=== PATIENT | male | born 1960 | race Caucasian/White ===

== ENCOUNTER → 2023-07-18 15:11 | Outpatient (REF) | payer BC, SELFPAY ==
[2023-07-18 17:02] LABS: PSA, Total - Diagnostic 1.26 ng/ml (0.0-4.0)
== END ==
LOC: REG 15:11
PROVIDERS: ATTENDING PHYSICIAN Specialist; FAMILY PHYSICIAN Family Medicine
DX: Z12.5 Encounter for screening for malignant neoplasm of prostate (principal)
CPT/HCPCS: 36415; 84153

== ENCOUNTER → 2023-09-30 12:16 | Outpatient (REF) | payer BC, SELFPAY ==
[2023-09-30 13:36] LABS: % Basophils 0.5 % (0-2); % Immature Granulocytes 0.2 % (0-0.5); % Lymphocytes 30.7 % (20.5-51.1); % Monocytes 8.2 % (1.7-9.3); % Neutrophils 59.4 % (42.2-75.2); Absolute Eosinophils 0.1 10^3/uL (0-0.7); Absolute Lymphocytes 1.9 10^3/uL (1.2-3.4); Absolute Monocytes 0.5 10^3/uL (0.1-0.6); Absolute Neutrophils 3.6 10^3/uL (1.4-6.5); Hematocrit 47.5 % (39.0-52.0); Hemoglobin 16.8 g/dL (13.0-18.0); Mean Corp Hgb Conc. 35.4 g/dL (33.0-37.0); Mean Corpuscular Hgb 31.2 pg (27.0-31.0); Mean Corpuscular Volume 88.3 fL (80.0-94.0); Mean Platelet Volume 11.7 fL (7.4-10.4); Nucleated Red Blood Cells % 0 % (-); Platelet Count 197 10^3/uL (130-400); Red Blood Cell Count 5.38 10^6/uL (4.70-6.10); White Blood Cell Count 6.1 10^3/uL (4.8-10.8)
[2023-09-30 14:26] LABS: ALT (SGPT) 22 U/L (0-50); AST (SGOT) 23 U/L (17-59); Albumin 4.3 g/dl (3.5-5.0); Alkaline Phosphatase 88 U/L (38-126); Blood Urea Nitrogen 17 mg/dl (9-20); Calcium 9.7 mg/dl (8.4-10.2); Carbon Dioxide 28 mmol/L (22-30); Chloride 99 mmol/L (98-107); Glucose 243 mg/dl (70-99); HDL Cholesterol 48 mg/dl; LDL Cholesterol, Calculated 169 mg/dl; Potassium 4.4 mmol/L (3.5-5.1); Sodium 133 mmol/L (135-145); Total Bilirubin 1.4 mg/dl (0.2-1.3); Total Cholesterol 236 mg/dl (50-199); Total Protein 6.8 g/dl (6.3-8.2); Triglyceride 96 mg/dl (10-149); Very Low Density Lipoprotein 19 mg/dl (0-30); eGFR > 60.00
[2023-09-30 14:56] LABS: Glycohemoglobin (HgbA1c) 13.4 % (4.0-5.6)
== END ==
LOC: REG 12:16
PROVIDERS: ATTENDING PHYSICIAN Internal Medicine Cardiovascular Disease; FAMILY PHYSICIAN Family Medicine
DX: Z00.00 Encounter for general adult medical examination without abnormal findings (principal); R73.01 Impaired fasting glucose; Z01.89 Encounter for other specified special examinations; E78.5 Hyperlipidemia, unspecified; R73.03 Prediabetes
CPT/HCPCS: 36415; 80053; 80061; 83036; 85025

== ENCOUNTER → 2023-09-30 13:34 | Outpatient (REF) | payer SELFPAY | LOC: RAD 13:34 | PROVIDERS: ATTENDING PHYSICIAN Internal Medicine Cardiovascular Disease; FAMILY PHYSICIAN Family Medicine | DX: I10 Essential (primary) hypertension (principal) | CPT/HCPCS: 75571 ==

== ENCOUNTER → 2023-11-08 10:08 | Outpatient (REF) | payer BC, SELFPAY | LOC: PET 10:08 | PROVIDERS: ATTENDING PHYSICIAN Internal Medicine Cardiovascular Disease | DX: R06.09 Other forms of dyspnea (principal); I25.10 Atherosclerotic heart disease of native coronary artery without angina pectoris; E11.59 Type 2 diabetes mellitus with other circulatory complications | CPT/HCPCS: 78431; A9555; J2785 ==

== ENCOUNTER 2023-11-22 07:16 | Day surgery (SDC) | payer BC, SELFPAY ==
[2023-11-21 18:18] VITALS: BMI 32.7
[2023-11-22] VITALS (21 sets, daily range): BP systolic 124–146; BP diastolic 72–87
[2023-11-22 07:58] LABS: APTT 25.6 Sec (23.4-35.0); INR 1.16; PT 14.6 Sec (11.4-14.6)
[2023-11-22 08:14] LABS: Glucose - Point of Care 137 mg/dl (70-99)
[2023-11-22 08:22] LABS: Hematocrit 45.3 % (39.0-52.0); Hemoglobin 15.9 g/dL (13.0-18.0); Mean Corp Hgb Conc. 35.1 g/dL (33.0-37.0); Mean Corpuscular Hgb 31.3 pg (27.0-31.0); Mean Corpuscular Volume 89.2 fL (80.0-94.0); Mean Platelet Volume 11.3 fL (7.4-10.4); Platelet Count 199 10^3/uL (130-400); Red Blood Cell Count 5.08 10^6/uL (4.70-6.10); Red Cell Dist. Width 12.1 % (11.5-14.5); White Blood Cell Count 5.9 10^3/uL (4.8-10.8)
[2023-11-22] MEDS: LOW STRENGTH ASPIRIN 81 MG PO (08:23)
[2023-11-22] MEDS: NSS 310 ML IV (08:28)
[2023-11-22 08:38] LABS: ALT (SGPT) 24 U/L (0-50); AST (SGOT) 29 U/L (17-59); Albumin 4.4 g/dl (3.5-5.0); Alkaline Phosphatase 75 U/L (38-126); Blood Urea Nitrogen 17 mg/dl (9-20); Calcium 9.7 mg/dl (8.4-10.2); Carbon Dioxide 26 mmol/L (22-30); Chloride 104 mmol/L (98-107); Estimated Creatinine Clearance > 125 ml/min; Glucose 131 mg/dl (70-99); Potassium 4.2 mmol/L (3.5-5.1); Sodium 139 mmol/L (135-145); Total Protein 6.7 g/dl (6.3-8.2); eGFR > 60.00
[2023-11-22 09:19] LABS: ACT-LR - POC 197 Seconds (116-155)
[2023-11-22 09:30] LABS: ACT-LR - POC 223 Seconds (116-155)
--- NOTE | 2023-11-22 12:29 | ITS.CL.CATH ---
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
Cardiac Catheterization
Procedure Report:
LEFT HEART CATHETERIZATION
Date of Procedure: November 22, 2023
Referring: Dr. Holly Mcintosh
PROCEDURES:
1. Left heart catheterization with coronary and single-plane left ventriculography
2. Hemodynamic assessment of LAD and circumflex with a [place] Omni wire. The iFR in the circumflex measured above the ischemic threshold while the iFR in the LAD measured well below the ischemic threshold serially measuring 0.78, 0.77, 0.76
INDICATION: This is a 63-year-old diabetic gentleman with a past medical history notable for diabetes with a recent hemoglobin A1c measuring 13.4%, familial hyperlipidemia untreated for many years and hypertension. A recent CT scan for coronary
calcium score was found to be quite elevated at 2711. A subsequent PET CT scan was notable for decreased myocardial flow reserve in the RCA, LAD, and circumflex. Although not highly symptomatic, the combination of these risk factors and findings
from the PET scan led to the decision to proceed with coronary angiography as there is concern from family and regular physicians that he may be minimizing symptoms
ACCESS: Right radial artery, 6 [place] sheath
HEMODYNAMICS : (mmHg)
AO (s/d) : 138/63
LV (s/d) : 129/8
LVEDP : 23
CORONARY FINDINGS
DOMINANCE: Right
LEFT MAIN: 30% mid narrowing with no pressure dampening upon engagement of a 6 [place] diagnostic catheter
LEFT ANTERIOR DESCENDIN% ostial stenosis with significant step up noted at the ostium of the LAD during IFR pullback. There is a 50% stenosis in the mid LAD beyond the first diagonal branch and 30% stenosis in the LAD beyond the second
diagonal branch. The distal LAD wraps completely around the apex supplying a significant portion of the inferior wall. The iFR in the LAD measured well below the ischemic threshold at 0.78, 0.77, and 0.76
CIRCUMFLEX: The circumflex is a large caliber nondominant vessel. OM1 arises proximally from the circumflex and is a small caliber vessel. OM 2 is a moderate to large size vessel with a 50% proximal stenosis. OM 3 is also a moderate caliber
vessel with a 40% mid stenosis. The circumflex continues in the AV groove supplying a sizable posterolateral branch. The iFR in the circumflex measured above the ischemic threshold at 1.0 and 1.0.
RIGHT CORONARY ARTERY: Heavily calcified and occluded in the mid vessel with a distal RCA filling via atzy-md-dwwul collaterals
VENTRICULOGRAPHY: Left ventriculography was performed in an WELLER projection. The digital single-plane left ventricular ejection fraction is estimated at 60%. No regional wall motion abnormalities are noted
HEMODYNAMIC ASSESSMENT OF THE CIRCUMFLEX AND LAD WITH A [place] OMNI WIRE: Intravenous heparin was administered and the ACT was followed during the procedure. A 6 [place] JL 4 guide catheter was advanced to the proximal descending thoracic aorta. A
[place] Omni wire was advanced to the guide catheter tip and normalized to guide catheter pressure while the guide catheter was disengaged from the left main. The 6 [place] JL 4 catheter then cannulated the left main and the Omni wire was advanced
to the distal circumflex where the iFR serially measured above the ischemic threshold at 1.0, and 1.0. The Omni wire was withdrawn from the circumflex and readvanced into the apical LAD where the iFR serially measured below the ischemic threshold
at 0.78, 0.77, and 0.76. A pullback was performed with a minor step up noted across the stenosis near the second diagonal branch and a significant step up was noted to near baseline levels at the ostium of the LAD. The Pd/Pa at the guide catheter
in the ascending aorta measured 0.98 confirming no significant baseline draft.
RADIATION SUMMARY: Fluoro Time (min): 7.8, Dose (mGy): 596, DAP (Gy.cm2) : 46.3
Closure Device: TR band
CONCLUSIONS:
1. Two-vessel coronary artery disease with chronic total occlusion of the RCA and high-grade hemodynamically significant stenosis at the ostium of the LAD. Moderate coronary disease in OM2 and OM3
2. Preserved left ventricular systolic function
RECOMMENDATIONS
1. Discussed with Dr. Mcintosh and will refer for CT surgical evaluation
Copy to: Dr. Holly Mcintosh
[2023-11-23 16:19] LABS: Fructosamine 353 umol/L (205-285)
== END 2023-11-22 15:00 | disposition home or self-care (01) ==
LOC: CATH 07:16
PROVIDERS: ATTENDING PHYSICIAN Internal Medicine Interventional Cardiology; CONSULT PHYSICIAN Thoracic Surgery (Cardiothoracic Vascular Surgery); FAMILY PHYSICIAN Family Medicine
DX: I25.10 Atherosclerotic heart disease of native coronary artery without angina pectoris (principal); I10 Essential (primary) hypertension; E78.49 Other hyperlipidemia; E11.9 Type 2 diabetes mellitus without complications
CPT/HCPCS: 80053; 82962; 82985; 85027; 85347; 85610; 85730; 93005; 93306; 93458; 93571; 93572; C1769; C1894; Q9967

== ENCOUNTER 2023-12-06 04:54 | Inpatient (IN) | payer BC, SELFPAY ==
[2023-12-02 12:05] VITALS: BMI 32.7
[2023-12-02 12:50] LABS: % Basophils 0.3 % (0-2); % Immature Granulocytes 0.2 % (0-0.5); % Lymphocytes 26.1 % (20.5-51.1); % Neutrophils 64.4 % (42.2-75.2); Absolute Eosinophils 0.1 10^3/uL (0-0.7); Absolute Lymphocytes 1.6 10^3/uL (1.2-3.4); Absolute Monocytes 0.4 10^3/uL (0.1-0.6); Absolute Neutrophils 3.9 10^3/uL (1.4-6.5); Hematocrit 45.9 % (39.0-52.0); Hemoglobin 15.8 g/dL (13.0-18.0); Mean Corp Hgb Conc. 34.4 g/dL (33.0-37.0); Mean Corpuscular Hgb 31.5 pg (27.0-31.0); Mean Corpuscular Volume 91.6 fL (80.0-94.0); Mean Platelet Volume 11.6 fL (7.4-10.4); Nucleated Red Blood Cells % 0 % (-); Platelet Count 198 10^3/uL (130-400); Red Blood Cell Count 5.01 10^6/uL (4.70-6.10); Red Cell Dist. Width 12.3 % (11.5-14.5)
[2023-12-02 12:59] LABS: Urine Albumin Negative (Neg - Trace); Urine Bilirubin Negative (Negative); Urine Character Clear (Clear); Urine Color Yellow; Urine Glucose Negative (Negative); Urine Ketone Negative (Negative); Urine Leukocyte Negative (Negative); Urine Nitrite Negative (Negative); Urine Occult Blood Negative (Negative); Urine Urobilinogen Negative (Neg - 1+)
[2023-12-02 13:03] LABS: ALT (SGPT) 21 U/L (0-50); AST (SGOT) 23 U/L (17-59); Albumin 4.4 g/dl (3.5-5.0); Alkaline Phosphatase 67 U/L (38-126); Blood Urea Nitrogen 16 mg/dl (9-20); Calcium 9.7 mg/dl (8.4-10.2); Carbon Dioxide 25 mmol/L (22-30); Chloride 101 mmol/L (98-107); Direct Bilirubin 0.2 mg/dl (0.0-0.4); Estimated Creatinine Clearance 123 ml/min; Glucose 121 mg/dl (70-99); Sodium 136 mmol/L (135-145); Total Bilirubin 1.1 mg/dl (0.2-1.3); Total Protein 6.6 g/dl (6.3-8.2); eGFR > 60.00
[2023-12-02 13:06] LABS: INR 1.12; PT 14.3 Sec (11.4-14.6)
[2023-12-02 13:07] LABS: APTT 29.7 Sec (23.4-35.0)
--- NOTE | 2023-12-02 13:57 | CM ---
"Chart reviewed. Met with the patient in PAT. Reviewed preoperative and postoperative instruction and restrictions, along with showering guidelines. Gave patient 2 soaps. 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 Patient is agreeable to a home visit by CT Transitional Care RN. Plan is for the patient to return home with CT Transitional RN. "
[2023-12-03 09:26] LABS: Glycohemoglobin (HgbA1c) 8.4 % (4.0-5.6)
[2023-12-06] VITALS (57 sets, daily range): BP systolic 77–150; BP diastolic 47–85; BMI 31.5
--- NOTE | 2023-12-06 00:53 | W.PN.CT ---
Assessment / Plan
-
Assessment:
S/P Standard sternotomy with aortic and right atrial cannulation/Coronary artery bypass grafting x 4 (In situ HUMPHREY to LAD, Ao to RSVG to OM 2 to OM 3, Ao to RSVG to distal RCA)/R EVH/Left atrial appendage ligation, 35 mm clip, by Dr. Muniz on 12/06/23,
pod#1
-Severe 2v CAD involving the LAD and RCA
-LVEF 60% per intraop ALONDRA
-HTN
-Hyperlipidemia
-T2DM (A1C 8.4)
-Class 1 obesity (BMI 33)
-Exercise induced asthma
-COVIDx2
-Renal calculi
-Diverticulosis
-S/p colonoscopy with polypectomies, 10/2022
-S/P repair of torn right meniscus, 2018
-S/P repair of Left rotator cuff, 2017
-S/p repair of tip of left middle finger
-Acute postop blood loss/Anemia (stable without blood transfusion)
-Acute postop atelectasis
-Acute postop hypovolemia with subsequent hypervolemia
Plan:
-No major issues overnight. Hemodynamically and neurologically intact
-Successfully extubated on 12/06/23 @ 1508
-Weaned off of Levophed gtt overnight, remains on insulin gtt per protocol
-No swan, U/O mL since OR
-Will hold AM dose of Lopressor given soft BP overnight
-Cont. current meds (ASA, Lipitor, Amiodarone; will add Plavix)
-Monitor chest tube output: 2meds , L pleurals
-D/C'd SLIC and a-line @ 0500
-D/C'd alvarez @ 0600
-Telemetry phase tomorrow once off insulin gtt per protocol. Will consult Diabetes education/management, A1C 8.4
-Maintain cordis
-Maintain temporary PW (will likely pull in 1-2 days)
-Wean off of O2 as tolerated
-Encourage use of IS
-OOB into chair/Ambulate
Subjective
-
Date of Service: December 06, 2023
Objective Data
-
Lab Results
12/02/23 12:17
12/02/23 12:17
PT 14.3 Sec (11.4-14.6) 12/02/23 12:17
INR 1.12 12/02/23 12:17
APTT 29.7 Sec (23.4-35.0) 12/02/23 12:17
[2023-12-06] MEDS: MAGNESIUM OXIDE 500 MG PO (05:42)
[2023-12-06] MEDS: PROTONIX 40 MG PO (05:42)
[2023-12-06] MEDS: LOPRESSOR 25 MG PO (05:43)
[2023-12-06] MEDS: BACTROBAN 2% OINTMENT 1 APPLIC NASAL ×2 (05:43→19:52)
--- NOTE | 2023-12-06 06:26 | W.CVOR.SURPR ---
CVOR Surgeon Immed Pre Op
-
I have examined this patient prior to performance of the scheduled procedure.
The patient's condition is unchanged from the time of the dictated/written History and
Physical and the patient is able to undergo the scheduled procedure.
CABG + CHRISTIANO E
CHADsVASc 3+
[2023-12-06 07:31] LABS: ACT+ - POC 87 Seconds (82-134)
[2023-12-06 07:35] LABS: Urine Albumin Negative (Neg - Trace); Urine Bilirubin Negative (Negative); Urine Character Clear (Clear); Urine Color Yellow; Urine Glucose Negative (Negative); Urine Ketone Negative (Negative); Urine Leukocyte Negative (Negative); Urine Nitrite Negative (Negative); Urine Occult Blood Negative (Negative); Urine Specific Gravity 1.025 (<1.030); Urine Urobilinogen Negative (Neg - 1+)
[2023-12-06 07:35] LABS: B.E. - POC -0.4 mmol/L; Glucose - POC 153 mg/dl (65-99); HCO3 - POC 25 mmol/L (21-29); Hematocrit - POC 41 % PCV (42-52); Hemodilution- POC No; Ionized Calcium - POC 1.29 mmol/L (1.12-1.27); PCO2 - POC 41 mmHg (35-45); PO2 - POC 523 mmHg (80-100); POC Comment PRE; Potassium - POC 3.9 mmol/L (3.6-5.0); Sodium - POC 141 mmol/L (135-145); pH - POC 7.39 (7.35-7.45)
--- NOTE | 2023-12-06 08:56 | CM ---
pt in OR today, cm to follow.
[2023-12-06 09:14] LABS: ACT+ - POC 642 Seconds (82-134)
[2023-12-06 09:46] LABS: ACT+ - POC 700 Seconds (82-134)
[2023-12-06 09:47] LABS: B.E. - POC 1.7 mmol/L; Glucose - POC 189 mg/dl (65-99); HCO3 - POC 28 mmol/L (21-29); Hematocrit - POC 35 % PCV (42-52); Hemodilution- POC Yes; Hemoglobin Calculated - POC 11.9; Ionized Calcium - POC 1.14 mmol/L (1.12-1.27); O2 Saturation %Calculated-POC 99.8 5 (92-96); PCO2 - POC 51 mmHg (35-45); PO2 - POC 226 mmHg (80-100); POC Comment CPB; Potassium - POC 4.4 mmol/L (3.6-5.0); Sodium - POC 138 mmol/L (135-145); pH - POC 7.35 (7.35-7.45)
[2023-12-06 10:10] LABS: B.E. - POC 0.9 mmol/L; Glucose - POC 198 mg/dl (65-99); HCO3 - POC 25 mmol/L (21-29); Hematocrit - POC 38 % PCV (42-52); Hemodilution- POC Yes; Hemoglobin Calculated - POC 12.8; Ionized Calcium - POC 1.14 mmol/L (1.12-1.27); O2 Saturation %Calculated-POC 99.8 5 (92-96); PCO2 - POC 38 mmHg (35-45); PO2 - POC 204 mmHg (80-100); POC Comment CPB; Potassium - POC 4.1 mmol/L (3.6-5.0); Sodium - POC 140 mmol/L (135-145); pH - POC 7.43 (7.35-7.45)
[2023-12-06 10:16] LABS: ACT+ - POC 523 Seconds (82-134)
[2023-12-06 10:35] LABS: B.E. - POC 0.2 mmol/L; Glucose - POC 127 mg/dl (65-99); HCO3 - POC 25 mmol/L (21-29); Hematocrit - POC 45 % PCV (42-52); Hemodilution- POC Yes; Hemoglobin Calculated - POC 15.2; Ionized Calcium - POC 1.19 mmol/L (1.12-1.27); O2 Saturation %Calculated-POC 96.8 5 (92-96); PCO2 - POC 38 mmHg (35-45); PO2 - POC 87 mmHg (80-100); POC Comment REWARM; Potassium - POC 4.1 mmol/L (3.6-5.0); Sodium - POC 142 mmol/L (135-145); pH - POC 7.42 (7.35-7.45)
[2023-12-06 10:37] LABS: ACT+ - POC 496 Seconds (82-134)
[2023-12-06 10:41] LABS: B.E. - POC -0.5 mmol/L; Glucose - POC 111 mg/dl (65-99); HCO3 - POC 25 mmol/L (21-29); Hematocrit - POC 42 % PCV (42-52); Hemodilution- POC Yes; Hemoglobin Calculated - POC 14.3; Ionized Calcium - POC 1.17 mmol/L (1.12-1.27); O2 Saturation %Calculated-POC 98.3 5 (92-96); PCO2 - POC 41 mmHg (35-45); PO2 - POC 112 mmHg (80-100); POC Comment WARM; Potassium - POC 4.5 mmol/L (3.6-5.0); Sodium - POC 141 mmol/L (135-145); pH - POC 7.39 (7.35-7.45)
--- NOTE | 2023-12-06 11:03 | PN.DE.MGMTRT ---
Insulin Management
- -
12/06/2023 Diabetes Management Consult
Patient admitted today for OR for CABG. PMH HTN< HLD, nephrolithiasis, ASCVD, type 2 diabetes. Patient is in OR at time of my visit. Information from chart review and patients nurse.
Prior to admission patient taking metformin ER 1000 mg Q PM. A1C on admission 8.4% down from 13.4% 09/30/23. Per Dr. Muniz note patient taking metformin and following carb controlled diet.
Patient will be on glycemic protocol, evaluate daily, prepare for transition to PO regimen POD 2.
Request CM investigate cost of Farxiga or Jardiance to be added to metformin.
Will follow.
Diabetes History
- -
Type of Diabetes: 2
Pre-Admission Diabetes Regimen
Lab Results
Hemoglobin A1c 8.4 % (4.0-5.6) H 12/02/23 12:17
Insulin Pump Settings
IP Diabetes Regimen
Patient Education
[2023-12-06 11:05] LABS: ACT+ - POC 104 Seconds (82-134)
[2023-12-06 11:09] LABS: B.E. - POC -1.8 mmol/L; Glucose - POC 57 mg/dl (65-99); HCO3 - POC 23 mmol/L (21-29); Hematocrit - POC 39 % PCV (42-52); Hemodilution- POC Yes; Hemoglobin Calculated - POC 13.2; Ionized Calcium - POC 1.34 mmol/L (1.12-1.27); PCO2 - POC 39 mmHg (35-45); PO2 - POC 431 mmHg (80-100); POC Comment POST; Potassium - POC 3.9 mmol/L (3.6-5.0); Sodium - POC 142 mmol/L (135-145); pH - POC 7.38 (7.35-7.45)
[2023-12-06 11:35] LABS: B.E. - POC -1.7 mmol/L; Glucose - POC 108 mg/dl (65-99); HCO3 - POC 24 mmol/L (21-29); Hematocrit - POC 41 % PCV (42-52); Hemodilution- POC Yes; Hemoglobin Calculated - POC 13.8; Ionized Calcium - POC 1.33 mmol/L (1.12-1.27); O2 Saturation %Calculated-POC 99.9 5 (92-96); PCO2 - POC 40 mmHg (35-45); PO2 - POC 319 mmHg (80-100); POC Comment POST; Sodium - POC 143 mmol/L (135-145); pH - POC 7.37 (7.35-7.45)
--- NOTE | 2023-12-06 11:56 | CM ---
priced Jardiance and Farxiga with pts perscript plan- future scripts- the coapy is $35/month for either med.
[2023-12-06] MEDS: LR 250 IV ×3 (12:00→13:38)
[2023-12-06] MEDS: ANCEF 10 IV ×2 (12:00)
--- NOTE | 2023-12-06 12:00 | PTCARENOTE ---
SDA for sternotomy, CABG x 4 using HUMPHREY RSVG, placement of temp epicardial v wire, left atrial appendage ligation with a 35mm clip, ALONDRA and sternal wires/rigid plates. No swan dianelys. SLIK cvp port right IJ cordis.. No blood products. Out of cvor at
12pm: labile. 1L LR given boluses of 250ml and 1 5%albumin 250ml. Extubated at 1445pm to 6l nasal canula and titrated to 4L. Chest tubes x 3 (left pleural/2meds) V wire for backup 30/10
--- NOTE | 2023-12-06 12:01 | W.PN.CT.SURG ---
Addendum entered and electronically signed by Zhou Muniz MD 12/07/23 06:57:
Findings: Left ventricular ejection fraction preoperatively was normal at 60% LVEF. Following surgery his EF remained the same at 60% with no new regional wall motion abnormalities. The HUMPHREY was harvested in a skeletonized fashion. Following bypass
grafting, test dose cardioplegia was given down each distal and confirmed patency and hemostasis. Each distal was probed both proximally and distally to confirm disease and patency, respectively. No inotropic support was required. No products were
given other than 500 cc of scavenged blood from the field via Cell Saver. He was in sinus rhythm and did not require any ventricular pacing. Additionally, the left atrial appendage was verified on ALONDRA to be free of thrombus or debris prior to
surgery and was totally occlusive with no residual nub or flow on color doppler after deployment of the clip and coming off CPB.
Original Note:
CT Surgery Operative Note
-
CARDIAC SURGERY OPERATIVE REPORT
Preoperative Diagnosis: Multivessel Coronary Artery Disease with new diagnosed diabetes melitis
Postoperative Diagnosis: Same
Procedure(s) Performed:
1. Standard sternotomy with aortic and right atrial cannulation
2. Coronary artery bypass grafting x 4 (In situ HUMPHREY to LAD, Ao to RSVG to OM 2 to OM 3, Ao to RSVG to distal RCA)
3. Placement of temporary ventricular pacing wire
4. Endoscopic vein harvesting of right lower extremity
5. Left atrial appendage ligation, 35 mm clip
6. Transesophageal echocardiography
7. Rigid sternal fixation with 3 plates in addition to wires
Date of Surgery: 12/06/2023
Comorbidities:
1. Multivessel coronary disease involving the proximal LAD
2. Newly diagnosed diabetes mellitus, HbA1c was 13
3. Hypertension
4. Hyperlipidemia
5. Nephrolithiasis
6. COVID infection x 2
7. Mild carotid atherosclerotic disease
Attending Surgeon: Zhou Muniz MD, MS
Assistants: Hailee Galan PA-C (present and necessary to nurse first aid, endoscopic vein harvest, retraction, suction, exposure, suture management, and wound closure under my direction)
Anesthesiology: Sander Pitts MD and Kingsley Blank CRNA
Scrub and Circulating RNs: Pablo Rivera RN, Anabel Jackson RN
Cattle Manager: Flaquito Mallory CCP & Andreia Sun CCP
Anesthesia: GETA
EBL: per perfusion records
Products: 500cc of Cell Saver Blood, otherwise no products
CPB Time: 87 minutes
Aortic Cross Clamp Time: 75 minutes
Implants:
1. 35mm CHRISTIANO Clip
2. 2 box plates and 1 x-plate (14 x 18mm screws)
Indication(s) for Procedures: This is a 63-year-old male who was found to have a significant calcium scoring CT scan underwent left heart cath and ultimately found to have multivessel coronary artery disease involving the proximal LAD. He is also
newly diagnosed as a diabetic with an HbA1c of 13.5% approximately 2 months ago. 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
harvest worker field crop and myself with a consensus to proceed with CABG. We discussed his STS risk in the office as well as reviewed his [id number] score and was found acceptable for CABG plus left atrial branch ligation. He accepted the risk and so we
proceeded.
Conduit(s) Quality:
HUMPHREY -excellent/skeletonized good visual flow in the LAD territory follow removal of the bulldog clamp
RSVG -excellent/uniform graft with minimal varicosities, mild thickening at various locations which were excluded from bypass
Target(s) Quality:
dRCA -average/heavily calcified vessel with small distal target, was able to find a distal RCA target with a lumen, had approximately 35 to 45 cc a minute of flow at a pressure of 80 to 85 mmHg
OM2 -good/good sized target, good visual flow as well as approximately 40 to 45 cc of flow a minute at a pressure of 80 mmHg with test dosing of antegrade
OM3 �excellent/large sized target with good flow with the distal sequence occluded, had approximately 40 to 45 cc a minute of flow at a pressure of 80 mmHg with test dosing of antegrade
LAD -excellent/large sized target that wraps around the apex towards the posterior wall, good visual flow in the LAD territory with backfilling into the diagonal vessel upon release of the bulldog clamp
Findings: Left ventricular ejection fraction preoperatively was normal at 60% LVEF. Following surgery his EF remained the same at 60% with no new regional wall motion abnormalities. The HUMPHREY was harvested in a skeletonized fashion. Following bypass
grafting, test dose cardioplegia was given down each distal and confirmed patency and hemostasis. Each distal was probed both proximally and distally to confirm disease and patency, respectively. No inotropic support was required. No proximal were
given other than 500 cc of scavenged blood from the field via Cell Saver. He was in sinus rhythm and did not require any ventricular pacing.
Description of Procedure: The patient was taken to the operating room. Their identity and procedure to be performed were verified and they were positioned supine on the operating table. Induction via general anesthesia with endotracheal intubation
was performed and central venous access and arterial monitoring were inserted. A preoperative transesophageal echocardiogram was performed to assess cardiac function and valvular function. The patient was then prepped and draped from chin to feet in
a sterile fashion. A preoperative time-out was performed with all members of the team present. A midline chest incision was performed along with median sternotomy. Simultaneous endoscopic access of the right lower extremity for saphenous vein
harvest was obtained along with administration of an initial 5,000 units of IV heparin. A RulTract sternal retractor was positioned to exposure the left internal mammary bed. The mammary was harvested and found to have good flow. A bulldog clamp was
applied to the distal end of the mammary after dividing it. It was wrapped in a papaverine soaked RayTec and replaced back into the left hemithorax. The RulTract was exchanged for a median sternal retractor. The innominate vein was isolated. Full
heparinization was given (a total of 55,000 units). We created a pericardial well. The aortic cannulation site was chosen where it was soft, pliable, and free of calcium. Cannulation was performed with an arterial cannula in the ascending aorta and
a triple-stage venous cannula through the right atrial appendage. The arterial cannula line had an appropriate bounce and correlating pressures with test dosing. Next, a root vent/antegrade cannula was inserted into the ascending aorta. The ACT was
confirmed to be over 400 and retrograde autologous priming was performed before commencing cardiopulmonary bypass. The pulmonary artery was away from the aorta to facilitate a clamp site. The aortic cross-clamp was placed after decreasing
the flow on the bypass and mean arterial pressure. A total of 1.2L initial dose of antegrade Del-Nido cardioplegia solution was given and planned for re-dosing every 75 minutes as necessary. There was rapid electro-mechanical arrest of the heart at
280 cc of cardioplegia. The left ventricle was observed for distention on echocardiogram and manual palpation. Cold slush was placed into a sponge and topically on the RV while we systemically cooled to 34 degrees centigrade.
The heart was then medialized the ligament of Devendra was divided. A 35 mm clip was applied flush the base left atrial appendage. I positioned the heart to expose the distal right coronary. A ohog[place]ut blade was used to expose the coronary and
perform the arteriotomy. Coronary Cox scissors were used to enlarge the incision. The saphenous vein was trimmed and beveled to an appropriate size. The distal anastomosis was performed using 7-0 prolene in an end-to-side fashion. Antegrade
cardioplegia was administered into the graft. Appropriate hemostasis and flow were confirmed. The graft was measured for length to the aorta and cut. A suitable site on the third obtuse marginal was chosen. We dissected and prepared the distal
target in a similar fashion. An end-to-side anastomosis was created with a 7-0 prolene. Antegrade cardioplegia was administered into the graft. Appropriate hemostasis and flow were confirmed. The second obtuse marginal was then dissected and the
graft was measured in order to accommodate a sequential graft. A small coronary arteriotomy was created enlarged with Cox scissors. The underbelly of the vein graft was sized and measured accordingly followed by a small venotomy. A [id number]
anastomosis was created using 7-0 Prolene in a running fashion. Occlusion of the distal sequential demonstrated excellent flow with test dosing of antegrade as well as hemostasis. The graft was measured for length to the aorta and cut. A suitable
target on the mid/distal left anterior descending was identified. We dissected and prepared the distal target in a similar fashion. We retrieved the HUMPHREY from the chest and created a pericardial opening while being cognizant of the phrenic nerve to
facilitate the course of the mammary. The distal end of the mammary was prepped and beveled to size. We verified orientation and length of the RAIN and found brisk flow. An end-to-side anastomosis was created with a 7-0 prolene. We temporarily
released the bulldog clamp on the mammary to inspect flow. Perfusion to the LAD territory was visualized and hemostasis was confirmed. The bull clamp was replaced on the mammary. The heart was filled and the root was distended with antegrade
cardioplegia to make final assessment of graft length and orientation. We created 2 aortotomies using a #11 blade then a 4.0mm aortic punch. The proximal anastomoses were created in an end-to-side fashion using 6-0 prolene. At the the same time, we
re-warmed to 36.5 degrees centigrade. The bulldog clamp was removed from the mammary. Temporary bipolar ventricular pacing wires were placed on the base of the right ventricle. The patient was placed in a trendelenburg position and flows on bypass
were lowered. The aortic cross clamp was removed and flows were slowly brought back up. A 30-gauge needle was used to de-air the vein grafts. All bypass grafts were inspected and were free from kinking or twisting. A repair stitch was placed over
the epicardial surface at the distal RCA anastomosis. The distal and proximal anastomoses appeared hemostatic thereafter. Once transesophageal echocardiography appeared satisfactory for de-airing, the flows were temporarily lowered for root vent
removal. After verifying acceptable parameters, we initiated weaning from cardiopulmonary bypass. Once we were off cardiopulmonary bypass, the venous cannula was clamped and removed. A test dose of protamine was administered and the patient was
monitored for any adverse reaction before resuming protamine. Once half of the protamine dose was delivered, pump suckers were turned off and the systolic blood pressure was lowered for aortic decannulation. The aortic cannula was removed and
pursestrings were tied down. All cannulation sites were oversewn with a 4-0 prolene. The mammary bed was inspected and hemostasis was confirmed. Once the mediastinum was hemostatic, 19Fr John drain was placed in the left pleural cavity and two 24Fr
John drains were placed within the pericardium. The sternum was approximated with 4 #7 single and 3 #8 double stainless steel wires. Given his level of activity and field of work, additional plates were placed at the manubrium, sternum and lower
sternum. Fascia was approximated with #1 vicryl suture. The subcutaneous, dermis and epidermis were closed in layers in a running fashion. The skin wound was cleansed and dressed.
All instrument, sponge, and needle counts were confirmed to be correct x 2 at the end of the operation. The patient was transferred to the cardiac intensive care unit in critical but stable condition.
I, Dr. Zhou Muniz, was present, scrubbed for, and performed all critical elements of this procedure.
Zhou Muniz MD, MS
Cardiothoracic Surgeon
[facility]
This operative dictation was created using the [employer] dictation system. Please excuse any grammatical, typographical, or 'sound alike' errors
[2023-12-06 12:12] LABS: HCO3 23.7 mmol/L (21-28); Hematocrit 42.8 % (39.0-52.0); Hemoglobin 15.5 g/dL (13.0-18.0); Ionized Calcium 1.27 mMOL/L (1.15-1.33); O2 Saturation % 99.9 % (94-98); PCO2 43 mmHg (35-48); PO2 232 mmHg (83-108); Platelet Count 165 10^3/uL (130-400); Potassium 4.1 mMOL/L (3.5-5.1); Sodium 136 mMOL/L (136-145); pH 7.35 (7.35-7.45)
[2023-12-06 12:13] LABS: Glucose - Point of Care 119 mg/dl (70-99)
[2023-12-06 12:28] LABS: Blood Urea Nitrogen 19 mg/dl (9-20); Estimated Creatinine Clearance 125 ml/min; Glucose 116 mg/dl (70-99); Magnesium 2.3 mg/dl (1.6-2.3)
[2023-12-06] MEDS: NSS 500 IV (12:29)
[2023-12-06 12:30] LABS: APTT 27.7 Sec (23.4-35.0); INR 1.44; PT 17.3 Sec (11.4-14.6)
--- NOTE | 2023-12-06 12:38 | W.PN.UPDATE ---
Update Note
Progress Note Update
63-year-old male was electively admitted on 12/06/2023 for CABG due to triple-vessel coronary disease with preserved ejection fraction.
IV fluids: 1500
U.O.:� 500
Blood:� none
Wires:� V-wires
Inotropes:� none
Pressors:� none
Sedatives:� Precedex
�
NEURO: sedated on Precedex, pupils +2mm B/L
RESP: #8OT @23cm> 550/60%/14/5. Lungs clear B/L. 1 mediastinal (20cc on arrival) and R/L pleural (20cc on arrival) chest tubes to -20cm suction. Sanguineous drainage
CV: RRR +S1, S2, no S3, +rub, +VICKI LSB 3rd ICS. Dermabond to median sternotomy. RIJ w/slick
ABD: round, soft, no BS
EXT: no edema, +2/4 DP pulses B/L, no femoral bruit, RLE FLORA wrap intact; left radial A-line intact
: Pepe with clear yellow urine
�
A/P: POD #0 s/p CABG x 4 (HUMPHREY to LAD, RSVG to OM 2 & OM 3 in sequence, RSVG to distal RCA), Left atrial appendage ligation #35 mm clip
ALONDRA: EF�60%
- wean and extubate
# CAD
- will need ASA/Plavix, statin (Livalo), beta-bertrand
- resume regularly scheduled Repatha
��
# T2DM (A1C 8.4<13)
- insulin infusion x 48h
- diabetes, carb controlled diet
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
- resume MFM 1000mg q PM
�
# Hyperlipidemia
- resume�Livalo.Repatha
--- NOTE | 2023-12-06 12:57 | W.PN.CARDCBS ---
Addendum entered and electronically signed by Kavin Stout DO 12/06/23 13:27:
I saw and examined the patient.
The Transportation Agent's note was reviewed and I agree with the note.
Comment:
Plan:
Cont post op care s/p CABG x 4 In situ HUMPHREY to LAD, Ao to RSVG to OM 2 to OM 3, Ao to RSVG to distal RCA 12/06/23
Wean vent per protocol.
Remains sinus rhythm
Stable bp.
Prior to admission, was on ASA, Toprol 25mg daily, livalo, repatha
Discussed with nursing.
Original Note:
Today's Communication / Plan
-
continue post op care
Impression / Plan
-
Primary Flat Bed Knitter: Dr. Holly Mcintosh
Assessment:
MV CAD s/p CABG x 4 In situ HUMPHREY to LAD, Ao to RSVG to OM 2 to OM 3, Ao to RSVG to distal RCA 12/06/23
HTN
HLD
DM2
Obesity
Mild carotid atherosclerotic disease
ECHO 11/22/2023: EF 60 to 65%, mild concentric LVH, stage I diastolic dysfunction, mild TR, PAP 34 mmHg, mildly dilated ascending aorta measuring 4.0 cm
ALONDRA 12/06/2023: EF 60%, no RWMA, moderate concentric LVH, stage II diastolic dysfunction, PAP 25 to 30 mmHg, mild aortic sclerosis, no significant MR with mild posterior MAC, mid ascending aorta dilated at 3.8 cm
Plan:
-s/p CABG x 4 In situ HUMPHREY to LAD, Ao to RSVG to OM 2 to OM 3, Ao to RSVG to distal RCA 12/06/23
-intubated, sedated
-off pressors
-in SR by review of EKG and tele post op
-hgb 15.5
-continue post op care
-prior to admission, was on asa, toprol 25mg daily, livalo, repatha
-d/w nursing
Progress Note - Flat Bed Knitter
Subjective
Date of Service: December 06, 2023
intubated, sedated
Objective
Labs:
12/06/23 12:03
Labs
Hgb 15.5 g/dL (13.0-18.0) 12/06/23 12:03
Hct 42.8 % (39.0-52.0) 12/06/23 12:03
Plt Count 165 10^3/uL (130-400) 12/06/23 12:03
PT 17.3 Sec (11.4-14.6) H 12/06/23 12:03
INR 1.44 12/06/23 12:03
APTT 27.7 Sec (23.4-35.0) 12/06/23 12:03
Sodium 136 mmol/L (135-145) 12/02/23 12:17
Potassium 4.0 mmol/L (3.5-5.1) 12/02/23 12:17
BUN 19 mg/dl (9-20) 12/06/23 12:03
Creatinine 0.7 mg/dL (0.7-1.3) 12/06/23 12:03
Glucose 116 mg/dl (70-99) H 12/06/23 12:03
Vital Signs and I&O:
Vital Signs
Temp Pulse Resp BP Pulse Ox
97.5 F 62 16 87/55 98
12/06/23 12:00 12/06/23 12:45 12/06/23 12:45 12/06/23 12:45 12/06/23 12:45
Vital Signs
Temp Pulse Resp BP Pulse Ox
97.5 F 62 16 87/55 98
12/06/23 12:00 12/06/23 12:45 12/06/23 12:45 12/06/23 12:45 12/06/23 12:45
Physical Exam
Physical Exam
GEN: No distress, intubated, sedated
HEENT: supple, mmm
LUNGS: CTA B/L, no wheezes/rales
CV: Reg, S1/S2, no murmur
EXT: No cyanosis, clubbing, edema
NEURO: sedated
SKIN: Warm, pink, dry. No rash. Sternotomy incision c/d/i. CTs in place. Temp wire in place.
[2023-12-06 13:08] LABS: Glucose - Point of Care 160 mg/dl (70-99)
--- NOTE | 2023-12-06 13:20 | CON.INTV ---
Consultation
Consultation Request
Date/Time Consultation Requested: 12/06/23
Date/Time Consultation Performed: 12/06/23
Performing Provider: Cristóbal
Reason for Consultation: Critical Care
Medical History
-
History of Present Illness:
Patient is a 63-year-old male with previous history of diabetes, hypertension found to have CAD on CT calcium scoring test. He then underwent left heart catheterization demonstrating proximal LAD disease, OM and RCA disease noted as well.
Underwent elective CABG x 4 12/06/2023 and postoperatively transferred to CVICU on mechanical ventilation for further management.
Past Medical History
Past Medical History: Other (see list below)
Social History
Tobacco: Non-smoker
Alcohol: None
Drug: None
Family History
Family History: Reviewed & Not Pertinent
Allergies / Home Medications
Allergies
Allergy/AdvReac Type Severity Reaction Status Date / Time
cefaclor [From Ceclor] Allergy Itching Verified 11/30/23 15:17
ciprofloxacin [From Cipro] Allergy Rash Verified 11/30/23 15:17
Home Medications
�Medication �Instructions �Recorded �Confirmed �Last Taken �Type
multivitamin (Daily Multiple 1 ea PO DAILY Supplement 08/16/11 12/06/23 11/29/23 08:00 History
tablet)
aspirin 81 mg tablet 81 mg PO DAILY Blood Clot 11/22/23 12/06/23 12/05/23 08:00 History
Prevention/Tx
evolocumab 140 mg/mL subcutaneous 140 mg SC Q2W High Cholesterol 11/22/23 12/06/23 11/28/23 08:00 History
pen injector (Repatha SureClick)
metformin 500 mg tablet 1,000 mg PO QPM Diabetes 11/22/23 12/06/23 12/05/23 20:00 History
pitavastatin calcium 1 mg tablet 1 mg PO DAILY High Cholesterol 11/22/23 12/06/23 12/05/23 08:00 History
(Livalo)
metoprolol succinate 25 mg 25 mg PO DAILY Heart 12/06/23 12/06/23 12/05/23 08:00 History
tablet,extended release 24 hr Disease/Condition
Review of Systems
-
Unable to Obtain full review of systems at this time due to: Patient Intubation
Vitals / Labs / Diagnostic Testing
Vital Signs
Temp Pulse Resp BP Pulse Ox
97.5 F 63 16 101/61 99
12/06/23 13:02 12/06/23 13:02 12/06/23 13:02 12/06/23 13:02 12/06/23 13:02
Lab Data
12/06/23 12:03
Laboratory Results
12/06/23
12:03
PT 17.3 H
INR 1.44
APTT 27.7
pH 7.35
pCO2 43
pO2 232 H
HCO3 23.7
O2 Delivery Level
Microbiology
12/02/23 12:17 Nose MRSA Screen - Final
No Methicillin Resistant Staphylococcus aureus isolated.
Diagnostic Testing:
Physical Exam
-
HEENT: Normocephalic, Anicteric and Moist Mucous Membranes
Cardiovascular: S1/S2 and Regular Rhythm
Respiratory: Clear, Non-Labored Respirations and Other (ETT/chest tubes)
GI: Soft, Non Distended and Non Tender
Neurology: Awake and Other (sedated/intubated, can open eyes, nod yes)
Skin: Warm, Dry and Good Color
General: Comfortable and Other (NAD)
Assessment
-
Patient is a 63-year-old male with previous history of diabetes, hypertension found to have CAD on CT calcium scoring test. He then underwent left heart catheterization demonstrating proximal LAD disease, OM and RCA disease noted as well.
Underwent elective CABG x 4 12/06/2023 and postoperatively transferred to CVICU on mechanical ventilation for further management.
CAD s/p CABG x 4 12/06/23
Perioperative mechanical ventilation
Conditions present [employer]
DM
HTN
Obesity, BMI 31
Plan
S/p CAB POD #0
Titrate off pressors per protocol
ECHO reviewed with normal function/stage II DD
PA catheter readings reviewed
Management of chest tubes per primary service
Intubated/sedated, initiate SAT when able
Pain control
RASS goal of 0 to -1
Intubated for procedure, SBT trial when patient able to spontaneously breath
Current vent settings: PS wean
ABG(s) reviewed/adequate
CXR with no obvious opacities/infiltrates, low lung volumes, ETT in good position, lines/tubes in place
Extubate per protocol
Maintain supplement oxygen as needed
No prior history of pulmonary disease
No prior PFTs for review
Can add nebulizers if needed
Aspiration precautions
Encouraged incentive spirometry, OOB/ambulation/early mobility
Advance diet as tolerated following extubation
GI prophylaxis if indicated for mechanical ventilation >48 hours
Monitor critical I/O's
Pepe/chest tube output
Hb/platelets postoperatively stable
Trend CBC for now
Can transfuse if indicated for Hb <7, plt <50 in surgical patients
DVT prophylaxis including SCDs
Insulin protocol initiated and ongoing
Transition to SQ/off as indicated per team
We will follow
Diagnostic Data
Chest X-Ray: 12/06/23- Postop cardiothoracic surgery. No evidence for significant pneumothorax. Bilateral atelectasis.
CT Scan: PET 11/08/23- Unremarkable CT chest over read portion of the exam.
Ca CT 09/30/23- MEDIASTINUM: No pericardial effusion.
LUNGS: The imaged lungs are clear. The central airways are patent.
UPPER ABDOMEN: Unremarkable.
SKELETON: Chronic degenerative changes of the spine.
IMPRESSION: Total calcium score: 2710.62 (see below for interpretation)
Echo: ALONDRA 12/06/23- Overall LVEF is approximately 60% with no RWMA. Moderate concentric left ventricular hypertrophy. Stage II Diastolic dysfunction. Mildly dilated left atrium. Trace tricuspid regurgitation. Estimated pulmonary artery systolic
pressure of 25-30 mmHg. Trace pulmonic insufficiency. Mild aortic sclerosis without stenosis. No significant MR. Mild posterior mitral annular calcification. Mid ascending aorta is dilated measuring 3.8 cm at the level of the RPA. No significant
atheroma seen in any aortic segment.
[facility] 11/22/23- CONCLUSIONS:
1. Two-vessel coronary artery disease with chronic total occlusion of the RCA and high-grade hemodynamically significant stenosis at the ostium of the LAD. Moderate coronary disease in OM2 and OM3
2. Preserved left ventricular systolic function
PFT's:
Reports and relevant images were personally reviewed.
-----
Critical care time 50 mins -- this includes review of history, physical exam, medications, hemodynamic/ventilator parameters, laboratory data, imaging and discussion with house staff, pharmacy, respiratory therapy, meeting coordinator, and nursing.
[2023-12-06] MEDS: CARDENE 200 IV (13:27)
[2023-12-06] MEDS: NEURONTIN PO ×2 (13:37→18:50)
[2023-12-06] MEDS: NOVOLOG FLEXPEN SC ×3 (13:37→19:07)
[2023-12-06 14:18] LABS: Glucose - Point of Care 149 mg/dl (70-99)
--- NOTE | 2023-12-06 14:20 | PTCARENOTE ---
Tolerating CPAP wean for last 20 minutes without apneic periods. Followed simple commands and moved all extremeties x 4. Nods head no to pain and nausea.
[2023-12-06 14:41] LABS: B.E. -2.3 mmol/L; HCO3 23.7 mmol/L (21-28); Ionized Calcium 1.17 mMOL/L (1.15-1.33); O2 Saturation % 99.8 % (94-98); PCO2 44 mmHg (35-48); PO2 137 mmHg (83-108); Potassium 3.7 mMOL/L (3.5-5.1); pH 7.34 (7.35-7.45)
--- NOTE | 2023-12-06 14:50 | PTCARENOTE ---
ABG results to Kristin morelos and Kasie Rossi CT surgery: patient is awakening spontaneously and following simple commands and moving all extremities. Extubated to 6l and titrated down to 4L nasal canula.
[2023-12-06] MEDS: KCL 50 IV ×2 (14:54→16:46)
[2023-12-06] MEDS: TYLENOL PO (15:01)
[2023-12-06 15:10] LABS: Glucose - Point of Care 136 mg/dl (70-99)
[2023-12-06] MEDS: CALCIUM CHLORIDE 10% SYRINGE 50 ML IV (15:19)
[2023-12-06] MEDS: CALCIUM CHLORIDE 10% SYRINGE 50 MG IV (15:19)
[2023-12-06] MEDS: OFIRMEV 100 IV (15:26)
[2023-12-06 15:57] LABS: Hematocrit 42.6 % (39.0-52.0); Hemoglobin 15.2 g/dL (13.0-18.0); Platelet Count 156 10^3/uL (130-400)
[2023-12-06 16:39] LABS: Glucose - Point of Care 110 mg/dl (70-99)
[2023-12-06] MEDS: LOW STRENGTH ASPIRIN 81 MG PO (16:46)
[2023-12-06] MEDS: ALBUMIN 5% 250 IV (16:49)
--- NOTE | 2023-12-06 18:00 | PTCARENOTE ---
No acute changes. Neuro intact. Levo at 1mcg. Kristin [place] updated.
[2023-12-06 18:43] LABS: Glucose - Point of Care 104 mg/dl (70-99)
[2023-12-06] MEDS: ZOFRAN 4 MG IV (18:55)
[2023-12-06] MEDS: PACERONE PO ×2 (19:07→21:37)
[2023-12-06] MEDS: ANCEF 5 IV (19:52)
[2023-12-06] MEDS: SODIUM BICARBONATE 50 MEQ IV (19:52)
--- NOTE | 2023-12-06 20:00 | PTCARENOTE ---
Assumed care of patient at 1900. Patient found resting in bed at time of assessment. Patient is AOx4, follows commands appropriately, moves all extremities. Lung sounds are diminished throughout, respirations are shallow, saO2 is 100% on 4L O2 via
NC. There are CTx3: 2xmeds to one atrium and a L pleural to one atrium draining red sanguineous. Heart sounds have a regular rate and rhtyhm, there is a rub present on auscultation, patient is SR with first deg AV block on the monitor. Patient has
normal palpable pulses throughout and trace BLE edema. Patient has soft nontender abdomen with hypoactive BS. There is a alvarez draining clear yellow urine. Patient had episode of nausea and vomit at change of shift with clear bilious emesis approx
75cc. Zofran administered. Patient has sternal incision approx with surgical adhesive [employer], R groin puncture approx with surg adhesive KTEAN, and RLE incision approx with surg adhesive [employer] and FLORA wrapped. Patient has R IJ cordis with slic receiving
KVO, L radial Chela and R AC PIV with insulin running through it. Patient currently has Levo@1. Vital signs as follows: T-97.7 P-70 BP-108/67 RR-19 CVP-2 MAP-70
[2023-12-06 20:34] LABS: Glucose - Point of Care 113 mg/dl (70-99)
[2023-12-06] MEDS: FLEXERIL 5 MG PO (21:20)
[2023-12-06] MEDS: SENOKOT-S 1 TABLET PO (21:22)
[2023-12-06] MEDS: TYLENOL 1000 MG PO (21:23)
[2023-12-06] MEDS: NEURONTIN 100 MG PO (21:25)
[2023-12-06 22:41] LABS: Glucose - Point of Care 105 mg/dl (70-99)
[2023-12-07] VITALS (53 sets, daily range): BP systolic 95–134; BP diastolic 49–97; PULSE 83; O2SAT 98; BMI 31.9
--- NOTE | 2023-12-07 | PTCARENOTE ---
Patient reassessed. VSS. Remains SR with first deg AV block on the monitor. Levo off. O2 weaned to 2L
[2023-12-07 00:45] LABS: Glucose - Point of Care 101 mg/dl (70-99)
[2023-12-07 02:54] LABS: Glucose - Point of Care 88 mg/dl (70-99)
[2023-12-07 04:08] LABS: Hematocrit 41.1 % (39.0-52.0); Hemoglobin 14.5 g/dL (13.0-18.0); Ionized Calcium 1.21 mMOL/L (1.15-1.33); Mean Corp Hgb Conc. 35.3 g/dL (33.0-37.0); Mean Corpuscular Hgb 32.5 pg (27.0-31.0); Mean Corpuscular Volume 92.2 fL (80.0-94.0); Mean Platelet Volume 11.4 fL (7.4-10.4); Platelet Count 160 10^3/uL (130-400); Red Blood Cell Count 4.46 10^6/uL (4.70-6.10); Red Cell Dist. Width 12.4 % (11.5-14.5); White Blood Cell Count 12.8 10^3/uL (4.8-10.8)
--- NOTE | 2023-12-07 04:17 | W.PN.CT ---
Today's Communication / Plan
-
Plan:
-No major issues overnight. Hemodynamically and neurologically intact
-Successfully extubated on 12/06/23 @ 1508
-Weaned off of Levophed gtt overnight, remains on insulin gtt per protocol
-No swan, U/O 930 mL since OR
-Postop EKG with global ST-elevation c/w acute pericarditis (+rub), will administer Toradol 15 mg x 3 doses, cr 0.5
-Cont. current meds (ASA, Lipitor, Amiodarone, Toprol XL; will add Plavix)
-Monitor chest tube output: 2meds 160/290, L pleurals 5/40 (may be able to d/c today if no significant dump when OOB)
-D/C'd SLIC and a-line @ 0430
-Will D/C alvarez @ 0600
-Telemetry phase tomorrow once off insulin gtt per protocol. Will consult Diabetes education/management, A1C 8.4
-Maintain cordis
-Maintain temporary PW (will likely pull in 1-2 days)
-Wean off of O2 as tolerated
-Encourage use of IS
-OOB into chair/Ambulate
Assessment / Plan
-
Assessment:
S/P Standard sternotomy with aortic and right atrial cannulation/Coronary artery bypass grafting x 4 (In situ HUMPHREY to LAD, Ao to RSVG to OM 2 to OM 3, Ao to RSVG to distal RCA)/R EVH/Left atrial appendage ligation, 35 mm clip, by Dr. Muniz on 12/06/23,
pod#1
-Severe 2v CAD involving the LAD and RCA
-LVEF 60% per intraop ALONDRA
-HTN
-Hyperlipidemia
-T2DM (A1C 8.4)
-Class 1 obesity (BMI 33)
-Exercise induced asthma
-COVIDx2
-Renal calculi
-Diverticulosis
-S/p colonoscopy with polypectomies, 10/2022
-S/P repair of torn right meniscus, 2018
-S/P repair of Left rotator cuff, 2017
-S/p repair of tip of left middle finger
-Acute postop atelectasis
-Acute postop hypovolemia with subsequent hypervolemia
-Acute postop EKG changes c/w acute pericarditis (+rub)
Discussed patient care with: Cardiology, Nursing, Respiratory Therapy, Pharmacy and Care Team
Subjective
Procedure
Standard sternotomy with aortic and right atrial cannulation/Coronary artery bypass grafting x 4 (In situ HUMPHREY to LAD, Ao to RSVG to OM 2 to OM 3, Ao to RSVG to distal RCA)/R EVH/Left atrial appendage ligation, 35 mm clip, by Dr. Muniz on 12/06/23
-
Date of Service: December 07, 2023
Pt c/o incisional pain relieved by current analgesics, otherwise feels well
Objective Data
-
Lab Results
12/07/23 03:51
PT 17.3 Sec (11.4-14.6) H 12/06/23 12:03
INR 1.44 12/06/23 12:03
APTT 27.7 Sec (23.4-35.0) 12/06/23 12:03
Vital Signs
Vital Signs
Temp Pulse Resp BP Pulse Ox
98.9 F 84 22 100/66 98
12/07/23 03:00 12/07/23 03:30 12/07/23 03:30 12/07/23 03:30 12/07/23 03:30
CT Intake/Output/Weight
12/06/23 12/06/23 12/07/23
06:59 18:59 06:59
Intake Total 1671.5 / 1893.7 222.2 / 1893.7
Output Total 660 / 1195 535 / 1195
Balance 1011.5 / 698.7 -312.8 / 698.7
SaO2: 98 (2L)
Physical Exam
-
General: Awake, Oriented and AOx3
Cardiovascular: Regular rate & rhythm, No Murmurs, Rub (acute pericarditis) and No Gallop
Respiratory: Decreased Breath Sounds (at bases, otherwise clear)
Sternum: Stable
Incision: Clean, Dry, Intact and Dressing Intact
Extremities: No Edema
Data Reviewed
-
Lab Results: Results Reviewed
Medications: Active Meds Reviewed
Chest X-Ray: Report Reviewed and Image Reviewed
ECG: Report Reviewed and Image Reviewed
[2023-12-07 04:30] LABS: Blood Urea Nitrogen 18 mg/dl (9-20); Calcium 9.3 mg/dl (8.4-10.2); Carbon Dioxide 24 mmol/L (22-30); Chloride 107 mmol/L (98-107); Estimated Creatinine Clearance > 125 ml/min; Glucose 94 mg/dl (70-99); Potassium 4.1 mmol/L (3.5-5.1); Sodium 139 mmol/L (135-145); eGFR > 60.00
[2023-12-07 04:40] LABS: Glucose - Point of Care 101 mg/dl (70-99)
[2023-12-07] MEDS: ANCEF 5 IV ×2 (05:00→12:12)
[2023-12-07] MEDS: CALCIUM CHLORIDE 10% SYRINGE 60 MG IV (06:04)
[2023-12-07] MEDS: TORADOL 15 MG IV ×3 (06:04→18:04)
[2023-12-07] MEDS: TYLENOL 1000 MG PO ×3 (06:05→22:38)
--- NOTE | 2023-12-07 06:30 | PTCARENOTE ---
Patient reassessed. VSS. Orders received to deline patient. Afshin removed 0620. Assisted patient oob to chair. Remains SR on the monitor. AM hygiene care provided.
[2023-12-07 06:45] LABS: Glucose - Point of Care 99 mg/dl (70-99)
--- NOTE | 2023-12-07 07:00 | PTCARENOTE ---
Bedside walking rounds report received. Patient seen on rounds oob in chair on room air and tolerating well. Awake alert and oriented x 3. Denies significant pain. Denies nausea. IS to 750ml to 1000ml. NSR with pac's. Vitals stable and normotensive.
Chest tubes x3 (left pleural and meds x 2) too -20cm wall suction: no air leak. Plan per ct surgery to remove left pleural chest tube this am and leave meds for now.Temp epicardial V wire for backup rate of 30bpm backup rate ma of 10 with a
sensitivity of 2. Sensing appropriately. Pericardial friction rub upon auscultation. CT surgery aware. Toradol q 6hrs x 3 doses ordered for same. See flow record for remaining assessments.
--- NOTE | 2023-12-07 07:32 | W.PN.ANS.POP ---
Anesthesia Post Operative
- Anesthesia Post Op Note
Vital Signs Stable-See Nursing Note: Yes
Airway Patent: Yes
Adequate Pain Control: Yes
Change in Mental Status: No
Current Postoperative Nausea & Vomiting: No
Anesthesia Complications: No
General Anesthetic Recall: No
Unplanned Admission: No
Post Op Hydration Adequate: Yes
[2023-12-07] MEDS: LIDOCAINE 4% PATCH 1 PATCH TOPICAL (08:09)
[2023-12-07] MEDS: NEURONTIN 100 MG PO ×3 (08:10→22:39)
[2023-12-07] MEDS: PLAVIX 75 MG PO (08:10)
[2023-12-07] MEDS: PROTONIX 40 MG PO (08:10)
[2023-12-07] MEDS: SENOKOT-S 1 TABLET PO ×2 (08:10→19:41)
[2023-12-07] MEDS: TOPROL XL 12.5 MG PO ×2 (08:10→19:40)
[2023-12-07] MEDS: LOW STRENGTH ASPIRIN 81 MG PO (08:10)
[2023-12-07] MEDS: MAGNESIUM OXIDE 500 MG PO ×2 (08:10→19:40)
[2023-12-07] MEDS: PACERONE 200 MG PO ×3 (08:10→22:38)
--- NOTE | 2023-12-07 08:13 | PN.DE.MGMTRT ---
Insulin Management
- -
12/07/2023 Diabetes Management Consult Follow up
Patient admitted for CABG. PMH HTN< HLD, nephrolithiasis, ASCVD, type 2 diabetes.
Prior to admission patient taking metformin ER 1000 mg Q PM. A1C on admission 8.4% down from 13.4% 09/30/23. Per Dr. Muniz note patient taking metformin and following carb controlled diet.
POD 1 s/p CABG x 4. Patient on glycemic protocol, glucose range 99 to 136 requiring .5 to 3 units of insulin per hour.
CM reports cost of Farxiga or Jardiance $35.00 per month, $70 3 month supply but may be able to use free co-pay card.
Will continue glycemic protocol today, follow and transition in AM tomorrow.
Patient is awake, alert, oob in chair able to discuss diabetes management. Since being diagnosed 2 months ago patient has all but eliminated carbs, eating salads and salmon, chicken and oatmeal. He states he rows 45 minutes each morning and rides
his bike 15 miles EVERY day, he has lost ~ 40 pounds and down 4 pant sizes.
Discussed insulin requirements post op, and addition of Jardiance to regimen. He is agreeable. He initially was reluctant to testing his blood sugar but agreed to the importance. Will provide and instruct tomorrow
Diabetes History
- -
Type of Diabetes: 2
Pre-Admission Diabetes Regimen
12/06/23 12/07/23
12:03 03:51
Creatinine 0.7 0.5 L
Lab Results
Hemoglobin A1c 8.4 % (4.0-5.6) H 12/02/23 12:17
Insulin Pump Settings
IP Diabetes Regimen
12/06/23 12/06/23 12/06/23
12:02 12:03 13:07
Glucose 116 H
POC Glucose 119 H 160 H
12/06/23 12/06/23 12/06/23
14:07 15:09 16:29
Glucose
POC Glucose 149 H 136 H 110 H
12/06/23 12/06/23 12/06/23
18:41 20:33 22:40
Glucose
POC Glucose 104 H 113 H 105 H
12/07/23 12/07/23 12/07/23
00:43 02:47 03:51
Glucose 94
POC Glucose 101 H 88
12/07/23 12/07/23
04:36 06:43
Glucose
POC Glucose 101 H 99
Patient Education
[2023-12-07] MEDS: BACTROBAN 2% OINTMENT 1 APPLIC NASAL ×2 (08:14→19:40)
[2023-12-07 08:31] LABS: Glucose - Point of Care 132 mg/dl (70-99)
[2023-12-07] MEDS: NOVOLOG FLEXPEN SC ×2 (08:58→13:37)
--- NOTE | 2023-12-07 10:00 | PTCARENOTE ---
Assisted patient back to bed. Left pleural chest tube sutures removed an left pleural chest tube dc: patient tolerated well. Pulse ox sat 98% on room air and patient feels significant pain relief
[2023-12-07 10:04] LABS: Glucose - Point of Care 148 mg/dl (70-99)
--- NOTE | 2023-12-07 10:30 | PTCARENOTE ---
Assisted back oob to chair: NSR and ambulated hallway without difficulty with cardiac rehab: see post activity vitals.
[2023-12-07 11:12] LABS: Glucose - Point of Care 129 mg/dl (70-99)
--- NOTE | 2023-12-07 11:51 | W.PN.INTV ---
Today's Communication / Plan
Recommendations
Doing well post extubation, on room air
Stable off pressors
Transitioning off insulin gtt per team
Encouraged OOB/ambulation/IS
Assessment
-
Patient is a 63-year-old male with previous history of diabetes, hypertension found to have CAD on CT calcium scoring test. He then underwent left heart catheterization demonstrating proximal LAD disease, OM and RCA disease noted as well.
Underwent elective CABG x 4 12/06/2023 and postoperatively transferred to CVICU on mechanical ventilation for further management.
CAD s/p CABG x 4 12/06/23
Perioperative mechanical ventilation s/p extubation 12/06/23
Conditions present [employer]ULT[employer]
DM
HTN
Obesity, BMI 31
Plan
S/p CAB POD #1
Stable off pressors
ECHO reviewed with normal function/stage II DD
Management of chest tubes per primary service
Pain control
RASS goal of 0 to -1
Intubated for procedure, extubated and doing well
ABG(s) reviewed/adequate
CXR with stable postop changes
Currently weaned to RA
No prior history of pulmonary disease
No prior PFTs for review
Can add nebulizers if needed
Aspiration precautions
Encouraged incentive spirometry, OOB/ambulation/early mobility
Doing well with IS, can achieve >3L
Advance diet as tolerated following extubation
GI prophylaxis if indicated for mechanical ventilation >48 hours
Monitor critical I/O's
Pepe/chest tube output
Hb/platelets postoperatively stable
Trend CBC for now
Can transfuse if indicated for Hb <7, plt <50 in surgical patients
DVT prophylaxis including SCDs
Insulin protocol initiated and ongoing
Transition to SQ/off as indicated per team
Diagnostic Data
Chest X-Ray: 12/06/23- Postop cardiothoracic surgery. No evidence for significant pneumothorax. Bilateral atelectasis.
CT Scan: PET 11/08/23- Unremarkable CT chest over read portion of the exam.
Ca CT 09/30/23- MEDIASTINUM: No pericardial effusion.
LUNGS: The imaged lungs are clear. The central airways are patent.
UPPER ABDOMEN: Unremarkable.
SKELETON: Chronic degenerative changes of the spine.
IMPRESSION: Total calcium score: 2710.62 (see below for interpretation)
Echo: ALONDRA 12/06/23- Overall LVEF is approximately 60% with no RWMA. Moderate concentric left ventricular hypertrophy. Stage II Diastolic dysfunction. Mildly dilated left atrium. Trace tricuspid regurgitation. Estimated pulmonary artery systolic
pressure of 25-30 mmHg. Trace pulmonic insufficiency. Mild aortic sclerosis without stenosis. No significant MR. Mild posterior mitral annular calcification. Mid ascending aorta is dilated measuring 3.8 cm at the level of the RPA. No significant
atheroma seen in any aortic segment.
[facility] 11/22/23- CONCLUSIONS:
1. Two-vessel coronary artery disease with chronic total occlusion of the RCA and high-grade hemodynamically significant stenosis at the ostium of the LAD. Moderate coronary disease in OM2 and OM3
2. Preserved left ventricular systolic function
PFT's:
Reports and relevant images were personally reviewed.
-----
Critical care time 31 mins -- this includes review of history, physical exam, medications, hemodynamic/ventilator parameters, laboratory data, imaging and discussion with house staff, pharmacy, respiratory therapy, color artist, and nursing.
Subjective Dataa
Subjective Data
Date of Service:
Date of Service: December 07, 2023
Chief Complaint: [employer] Follow Up
Subjective:
Doing well this AM, off pressors
Extubated overnight/no events
Offers no new complaints, doing well on IS
Objective Data
Data Reviewed
Vital Signs / I&O / Oxygen:
Vital Signs
Temp Pulse Resp BP Pulse Ox
98.8 F 84 18 122/73 98
12/07/23 07:40 12/07/23 11:00 12/07/23 07:40 12/07/23 11:00 12/07/23 11:00
Intake and Output
12/06/23 12/07/23 12/08/23
06:59 06:59 06:59
Intake Total 1915.0 / 1915.0 321 / 321
Output Total 1260 / 1260 65 / 65
Balance 655.0 / 655.0 256 / 256
SaO2 [CPAP/PSV] 97
SaO2 [SIMV] 99
SaO2 98
Nasal Cannula flow liters per 2
minute
Physical Exam
General: Comfortable and Other (NAD)
HEENT: Normocephalic, Anicteric and Moist Mucous Membranes
Cardiovascular: S1-S2 and Regular Rhythm
Respiratory: Clear, Non-Labored Respirations and Chest Tube
GI: Soft, Non Distended and Non Tender
Neurology: Awake, Alert, Oriented, AO x 3 and No Motor Deficits
Skin: Warm, Dry and Good Color
Labs/Micro/Reports
Lab Data
12/07/23 03:51
12/07/23 03:51
Laboratory Results
12/06/23 12/06/23
12:03 14:30
PT 17.3 H
INR 1.44
APTT 27.7
pH 7.35 7.34 L
pCO2 43 44
pO2 232 H 137 H
HCO3 23.7 23.7
O2 Delivery Level
--- NOTE | 2023-12-07 13:06 | W.PN.CARDCBS ---
Addendum entered and electronically signed by Ty Sommer MD 12/07/23 13:16:
I saw and examined the patient.
The MATERIALS DIRECTOR or PA's note was reviewed and I agree with the note.
Comment: General: Well developed, well nourished in NAD.
Neck: Supple, no JVD, HJR, carotids +2 B/L, no bruits bilaterally.
Heart: Non displaced PMI, RRR, no murmurs, No S3, S4, no rubs.
Lungs: Scattered rhonchi
Sternal dressings noted
Extremities: No clubbing, cyanosis or edema bilaterally.
Neuro: Grossly nonfocal, awake, alert and oriented x3.
Stable cardiology status status post CABG. remains in sinus rhythm
Original Note:
Today's Communication / Plan
-
continue post op care
Impression / Plan
-
Primary Actuarial Technician: Dr. Holly Mcintosh
Assessment:
MV CAD s/p CABG x 4 In situ HUMPHREY to LAD, Ao to RSVG to OM 2 to OM 3, Ao to RSVG to distal RCA 12/06/23
HTN
HLD
DM2
Obesity
Mild carotid atherosclerotic disease
ECHO 11/22/2023: EF 60 to 65%, mild concentric LVH, stage I diastolic dysfunction, mild TR, PAP 34 mmHg, mildly dilated ascending aorta measuring 4.0 cm
ALONDRA 12/06/2023: EF 60%, no RWMA, moderate concentric LVH, stage II diastolic dysfunction, PAP 25 to 30 mmHg, mild aortic sclerosis, no significant MR with mild posterior MAC, mid ascending aorta dilated at 3.8 cm
Plan:
-s/p CABG x 4 In situ HUMPHREY to LAD, Ao to RSVG to OM 2 to OM 3, Ao to RSVG to distal RCA 12/06/23
-off pressors
-EKG 12/06 with evidence of pericarditis. patient with c/o pleuritic pain. receiving toradol
-in SR by review of tele overnight. continue toprol, amio
-hgb 14.5. continue asa, plavix
-continue post op care, OOB/IS
-prior to admission, was on livalo, repatha
-plan to transition off IV insulin tomorrow and start jardiance
Progress Note - Actuarial Technician
Subjective
Date of Service: December 07, 2023
Reported pleuritic pain overnight
Objective
Labs:
12/07/23 03:51
12/07/23 03:51
Labs
Hgb 14.5 g/dL (13.0-18.0) 12/07/23 03:51
Hct 41.1 % (39.0-52.0) 12/07/23 03:51
Plt Count 160 10^3/uL (130-400) 12/07/23 03:51
PT 17.3 Sec (11.4-14.6) H 12/06/23 12:03
INR 1.44 12/06/23 12:03
APTT 27.7 Sec (23.4-35.0) 12/06/23 12:03
Sodium 139 mmol/L (135-145) 12/07/23 03:51
Potassium 4.1 mmol/L (3.5-5.1) 12/07/23 03:51
BUN 18 mg/dl (9-20) 12/07/23 03:51
Creatinine 0.5 mg/dL (0.7-1.3) L 12/07/23 03:51
Glucose 94 mg/dl (70-99) 12/07/23 03:51
Vital Signs and I&O:
Vital Signs
Temp Pulse Resp BP Pulse Ox
98.8 F 84 18 122/73 98
12/07/23 07:40 12/07/23 11:00 12/07/23 07:40 12/07/23 11:00 12/07/23 11:00
Vital Signs
Temp Pulse Resp BP Pulse Ox
98.8 F 84 18 122/73 98
12/07/23 07:40 12/07/23 11:00 12/07/23 07:40 12/07/23 11:00 12/07/23 11:00
Intake & Output
12/05/23 12/06/23 12/07/23 12/08/23
07:59 07:59 07:59 07:59
Intake Total 2236.0 / 2236.0
Output Total 1280 / 1280 45 / 45
Balance 956.0 / 956.0 -45 / -45
Physical Exam
Physical Exam
GEN: No distress, awake, alert, oriented x3. sitting in chair
HEENT: supple, anicteric, mmm, eomi
LUNGS: Diminished BS B/L, no wheezes
CV: Reg, S1/S2, no murmur, +rub
ABD: soft, BS+, NT/ND
EXT: No cyanosis, clubbing, edema
NEURO: Gross non-focal
SKIN: Warm, pink, dry. No rash. Sternotomy dressing c/d/i.
[2023-12-07] MEDS: NSS IV (13:25)
[2023-12-07 13:31] LABS: Glucose - Point of Care 113 mg/dl (70-99)
--- NOTE | 2023-12-07 13:35 | PTCARENOTE ---
Stood and marched in place on room air. No orthostasis noted. No 'dumping' from mediastinal chest tubes
--- NOTE | 2023-12-07 14:28 | PTCARENOTE ---
Bladder scanned for 102ml. No real urge to void. Kristin [place] aware. Continue to monitor per bladder scan protocol. NSR with pac's
[2023-12-07 15:42] LABS: Glucose - Point of Care 129 mg/dl (70-99)
--- NOTE | 2023-12-07 17:00 | PTCARENOTE ---
Assumed care of patient at 1530. Pt is awake, alert, and oriented. No complaints of pain. Pt remains SR with HR 80's. BP 121/64 MAP 79. Epicardial V wire in place set to . Pulse oximetry 96% on room air. Mediastinal chest tubes x2 in place,
no sign of air leak or crepitus, drainage serosanguineous. Pt tolerating cholesterol lowering diet. Remains on insulin gtt per glycemic protocol. Pt remains DTV. Midsternal incision Aquacel dressing CDI. 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
Right IJ cordis in place with KVO. Pt ambulated 2 laps around unit with RN.
[2023-12-07 18:02] LABS: Glucose - Point of Care 150 mg/dl (70-99)
[2023-12-07] MEDS: NOVOLOG FLEXPEN 4 UNITS SC (18:17)
[2023-12-07 19:02] LABS: Glucose - Point of Care 161 mg/dl (70-99)
[2023-12-07 19:55] LABS: Glucose - Point of Care 161 mg/dl (70-99)
--- NOTE | 2023-12-07 20:00 | PTCARENOTE ---
Addendum entered by Ivory Velez RN 12/07/23 21:19:
+BS x4 quadrants, abdomen soft non tender; pt had first void ( since d/c of alvarez) at 1845, dark yellow urine; will continue to monitor.
Original Note:
Received pt from [facility]; pt resting comfortably in chair; pt assisted for walk and assisted back to chair; NSR on monitor, VSS; pt is AAOx4, denies pain; heart sounds audible, rub present, radial and DP pulses palpable, trace MARIA R, temp epicardial
V-wires set to VVI rate of 30, MA of 10, Mv of 2; lung sounds diminished throughout, spo2 96% on RA, x2 MS CT to -20 wall suction, no air leaks, no tidaling, no crepitus; surgical sites maintained; right IJ cordis and PIV maintained; pt's family at
bedside; call stafford within reach; will continue to monitor.
[2023-12-07 21:04] LABS: Glucose - Point of Care 130 mg/dl (70-99)
[2023-12-07 22:14] LABS: Glucose - Point of Care 84 mg/dl (70-99)
[2023-12-07 23:51] LABS: Glucose - Point of Care 99 mg/dl (70-99)
[2023-12-08] VITALS (28 sets, daily range): BP systolic 102–160; BP diastolic 53–102; PULSE 74; O2SAT 99–100; BMI 32.4
--- NOTE | 2023-12-08 | PTCARENOTE ---
Pt assessment unchanged; VSS, NSR on monitor; pt resting comfortably; call stafford within reach; will continue to monitor.
[2023-12-08] MEDS: NOVOLIN R INSULIN INFUSION 100 IV (00:30)
[2023-12-08 02:06] LABS: Glucose - Point of Care 97 mg/dl (70-99)
[2023-12-08] MEDS: ROXICODONE 5 MG PO ×2 (03:47→20:57)
--- NOTE | 2023-12-08 04:00 | PTCARENOTE ---
Pt assessment unchanged; VSS; NSR on monitor; labs drawn and sent; pt resting comfortably in bed; call stafford within reach; will continue to monitor.
[2023-12-08 04:01] LABS: Glucose - Point of Care 82 mg/dl (70-99)
[2023-12-08 04:11] LABS: Hematocrit 38.1 % (39.0-52.0); Hemoglobin 13.4 g/dL (13.0-18.0); Mean Corp Hgb Conc. 35.2 g/dL (33.0-37.0); Mean Corpuscular Hgb 31.8 pg (27.0-31.0); Mean Corpuscular Volume 90.5 fL (80.0-94.0); Mean Platelet Volume 11.4 fL (7.4-10.4); Platelet Count 143 10^3/uL (130-400); Red Blood Cell Count 4.21 10^6/uL (4.70-6.10); Red Cell Dist. Width 12.7 % (11.5-14.5); White Blood Cell Count 9.6 10^3/uL (4.8-10.8)
[2023-12-08 04:35] LABS: Blood Urea Nitrogen 26 mg/dl (9-20); Calcium 9.2 mg/dl (8.4-10.2); Carbon Dioxide 27 mmol/L (22-30); Chloride 103 mmol/L (98-107); Estimated Creatinine Clearance > 125 ml/min; Glucose 76 mg/dl (70-99); Magnesium 2.1 mg/dl (1.6-2.3); Potassium 4.4 mmol/L (3.5-5.1); Sodium 136 mmol/L (135-145); eGFR > 60.00
[2023-12-08 05:54] LABS: Glucose - Point of Care 102 mg/dl (70-99)
[2023-12-08] MEDS: TYLENOL 1000 MG PO ×3 (05:54→22:58)
--- NOTE | 2023-12-08 06:14 | W.PN.CT ---
Today's Communication / Plan
-
-pod #2
-no issues overnight
-labs are stable
-weaned off O2 - pOx 97% on RA
-CT output: 2 meds 85/215 in 12/24 hrs
-pw (VVI 30 backup)
-current meds (ASA, Plavix, Toprol bid, Amio, Protonix)
-encourage IS, OOB, ambulate
Assessment / Plan
-
Assessment:
S/P Standard sternotomy with aortic and right atrial cannulation/Coronary artery bypass grafting x 4 (In situ HUMPHREY to LAD, Ao to RSVG to OM 2 to OM 3, Ao to RSVG to distal RCA)/R EVH/Left atrial appendage ligation, 35 mm clip, by Dr. Muniz on 12/06/23,
pod#2
-Severe 2v CAD involving the LAD and RCA
-LVEF 60% per intraop ALONDRA
-HTN
-Hyperlipidemia
-T2DM (A1C 8.4)
-Class 1 obesity (BMI 33)
-Exercise induced asthma
-COVIDx2
-Renal calculi
-Diverticulosis
-S/p colonoscopy with polypectomies, 10/2022
-S/P repair of torn right meniscus, 2018
-S/P repair of Left rotator cuff, 2017
-S/p repair of tip of left middle finger
-Acute postop atelectasis
-Acute postop hypovolemia with subsequent hypervolemia
-Acute postop EKG changes c/w acute pericarditis (+rub)
Discussed patient care with: Nursing and Care Team
Subjective
Procedure
Standard sternotomy with aortic and right atrial cannulation/Coronary artery bypass grafting x 4 (In situ HUMPHREY to LAD, Ao to RSVG to OM 2 to OM 3, Ao to RSVG to distal RCA)/R EVH/Left atrial appendage ligation, 35 mm clip, by Dr. Muniz on 12/06/23
-
Date of Service: December 08, 2023
Objective Data
-
Lab Results
12/08/23 03:51
12/08/23 03:51
PT 17.3 Sec (11.4-14.6) H 12/06/23 12:03
INR 1.44 12/06/23 12:03
APTT 27.7 Sec (23.4-35.0) 12/06/23 12:03
Vital Signs
Vital Signs
Temp Pulse Resp BP Pulse Ox
98.9 F 81 16 131/70 97
12/08/23 04:00 12/08/23 04:15 12/08/23 04:00 12/08/23 04:00 12/08/23 04:15
CT Intake/Output/Weight
12/07/23 12/07/23 12/08/23
06:59 18:59 06:59
Intake Total 243.5 / 1915.0 882.9 / 1475.7 592.8 / 1475.7
Output Total 600 / 1260 160 / 545 385 / 545
Balance -356.5 / 655.0 722.9 / 930.7 207.8 / 930.7
SaO2: 97
Physical Exam
-
General: Awake and AOx3
Cardiovascular: Regular rate & rhythm, No Murmurs and Rub
Respiratory: Decreased Breath Sounds
Sternum: Stable
Incision: Clean, Dry and Intact
Extremities: Other (trace edema b/l, 1+ DPs b/l)
Abdomen: soft, nontender, + bowel sounds, + flatus
Data Reviewed
-
Lab Results: Results Reviewed
Medications: Active Meds Reviewed
Chest X-Ray: Report Reviewed and Image Reviewed
ECG: Report Reviewed and Image Reviewed
[2023-12-08 07:12] LABS: Glucose - Point of Care 122 mg/dl (70-99)
[2023-12-08] MEDS: NOVOLOG FLEXPEN SC ×2 (07:44→13:22)
[2023-12-08] MEDS: PLAVIX 75 MG PO (07:45)
[2023-12-08] MEDS: LOW STRENGTH ASPIRIN 81 MG PO (07:45)
[2023-12-08] MEDS: MAGNESIUM OXIDE 500 MG PO ×2 (07:45→20:57)
[2023-12-08] MEDS: SENOKOT-S 1 TABLET PO ×2 (07:45→20:57)
[2023-12-08] MEDS: PACERONE 200 MG PO ×3 (07:45→22:58)
[2023-12-08] MEDS: PROTONIX 40 MG PO (07:45)
[2023-12-08] MEDS: NEURONTIN 100 MG PO ×3 (07:45→22:58)
[2023-12-08] MEDS: LIDOCAINE 4% PATCH 1 PATCH TOPICAL (07:46)
[2023-12-08] MEDS: LIPITOR 10 MG PO (07:46)
[2023-12-08] MEDS: TOPROL XL 12.5 MG PO (07:46)
[2023-12-08] MEDS: BACTROBAN 2% OINTMENT 1 APPLIC NASAL ×2 (07:47→20:56)
[2023-12-08 07:55] LABS: Glucose - Point of Care 116 mg/dl (70-99)
--- NOTE | 2023-12-08 08:00 | PTCARENOTE ---
Received pt from variety lathe operator RN; pt AAOX3 and resting comfortably in chair; NSR on monitor and VSS; Insulin infusing per Glycemic protocol see flow sheet for details; RIJ Cordis and PIV x1 patent; V wires set to 30/10/2 no pacing noted; Lungs
diminished; IS to 1999; CT x2 to -20 wall suction no air leak and no crepitus noted; positive bowel sounds; pt voiding yellow urine; palpable pulses throughout; trace lower extremity edema noted; surgical sites C/D/I; see nursing documentation for
further details.
--- NOTE | 2023-12-08 08:41 | PN.DE.MGMTRT ---
Insulin Management
- -
12/08/2023 Diabetes Management Consult Follow up
Patient admitted for CABG. PMH HTN< HLD, nephrolithiasis, ASCVD, type 2 diabetes.
Prior to admission patient taking metformin ER 1000 mg Q PM. A1C on admission 8.4% down from 13.4% 09/30/23. Per Dr. Muniz note patient taking metformin and following carb controlled diet.
POD 2 s/p CABG x 4. Patient on glycemic protocol, glucose range 99 to 136 requiring .5 to 3 units of insulin per hour.
reports cost of Farxiga or Jardiance $35.00 per month, $70 3 month supply but may be able to use free co-pay card.
Patient is awake, alert, in bed able to discuss diabetes management. Since being diagnosed 2 months ago patient has all but eliminated carbs, eating salads and salmon, chicken and oatmeal. He states he rows 45 minutes each morning and rides his
bike 15 miles EVERY day, he has lost ~ 40 pounds and down 4 pant sizes.
Remained on glycemic protocol overnight, glucose range 84 to 161, requiring .2 to 3.5 units of insulin. Will transition from glycemic protocol. Will resume metformin 1000 BID, first dose now, and add Jardiance 10 mg daily, first dose now. Insulin
infusion to continue until after lunch then dc. Accucheks ACHS starting with dinner.
He initially was reluctant to testing his blood sugar but agreed to the importance. Provided and instructed on Contour next glucose monitor with good return demonstration. Patient able to verbalize times to test and target range.
RX for metformin, Jardiance, test strips and lancets in ambulatory orders. NOT transmitted
Diabetes History
- -
Type of Diabetes: 2
Pre-Admission Diabetes Regimen
12/08/23
03:51
Creatinine 0.7
Lab Results
Hemoglobin A1c 8.4 % (4.0-5.6) H 12/02/23 12:17
Insulin Pump Settings
IP Diabetes Regimen
07/03/2212/07/23 12/07/23
09:52 11:08 13:28
Glucose
POC Glucose 148 H 129 H 113 H
12/07/23 12/07/23 12/07/23
15:39 17:56 18:59
Glucose
POC Glucose 129 H 150 H 161 H
12/07/23 12/07/23 12/07/23
19:52 21:02 22:07
Glucose
POC Glucose 161 H 130 H 84
12/07/23 12/08/23 12/08/23
23:50 02:04 03:51
Glucose 76
POC Glucose 99 97
12/08/23 12/08/23 12/08/23
03:58 05:52 07:11
Glucose
POC Glucose 82 102 H 122 H
12/08/23
07:53
Glucose
POC Glucose 116 H
Patient Education
--- NOTE | 2023-12-08 08:59 | W.PN.CARDCBS ---
Today's Communication / Plan
-
Continue usual postop care
Resume outpatient lipid-lowering regimen on discharge
Increase activity as tolerates
Aggressive risk factor modification
Impression / Plan
-
Primary Dry Pan Charger: Dr. Holly Mcintosh
Assessment:
MV CAD s/p CABG x 4 In situ HUMPHREY to LAD, Ao to RSVG to OM 2 to OM 3, Ao to RSVG to distal RCA 12/06/23
Status post left atrial appendage occlusion at the time of open heart surgery. Excluded without flow per CT surgery note.
HTN
HLD
DM2
Obesity
Mild carotid atherosclerotic disease
ECHO 11/22/2023: EF 60 to 65%, mild concentric LVH, stage I diastolic dysfunction, mild TR, PAP 34 mmHg, mildly dilated ascending aorta measuring 4.0 cm
ALONDRA 12/06/2023: EF 60%, no RWMA, moderate concentric LVH, stage II diastolic dysfunction, PAP 25 to 30 mmHg, mild aortic sclerosis, no significant MR with mild posterior MAC, mid ascending aorta dilated at 3.8 cm
Plan:
-s/p CABG x 4 In situ HUMPHREY to LAD, Ao to RSVG to OM 2 to OM 3, Ao to RSVG to distal RCA 12/06/23
-Telemetry stable
-EKG 12/06 with evidence of pericarditis. Patient currently without c/o pleuritic pain. Receiving toradol
-Continue current medications.
-Continue asa, plavix per CT surgery and then de-escalate to aspirin only.
-prior to admission, was on livalo, repatha (currently on low-dose atorvastatin but has been intolerant in the past). Resume usual medications on discharge.
-Continue aggressive risk factor modification which we discussed.
Progress Note - Dry Pan Charger
Subjective
Date of Service: December 08, 2023
He is feeling well today and denies chest pain and palpitations. His sister is at the bedside.
Objective
Labs:
12/08/23 03:51
12/08/23 03:51
Labs
Hgb 13.4 g/dL (13.0-18.0) 12/08/23 03:51
Hct 38.1 % (39.0-52.0) L 12/08/23 03:51
Plt Count 143 10^3/uL (130-400) 12/08/23 03:51
PT 17.3 Sec (11.4-14.6) H 12/06/23 12:03
INR 1.44 12/06/23 12:03
APTT 27.7 Sec (23.4-35.0) 12/06/23 12:03
Sodium 136 mmol/L (135-145) 12/08/23 03:51
Potassium 4.4 mmol/L (3.5-5.1) 12/08/23 03:51
BUN 26 mg/dl (9-20) H 12/08/23 03:51
Creatinine 0.7 mg/dL (0.7-1.3) 12/08/23 03:51
Glucose 76 mg/dl (70-99) 12/08/23 03:51
Vital Signs and I&O:
Vital Signs
Temp Pulse Resp BP Pulse Ox
99.3 F 87 18 120/59 97
12/08/23 07:54 12/08/23 07:46 12/08/23 07:54 12/08/23 07:46 12/08/23 07:54
Vital Signs
Temp Pulse Resp BP Pulse Ox
99.3 F 87 18 120/59 97
12/08/23 07:54 12/08/23 07:46 12/08/23 07:54 12/08/23 07:46 12/08/23 07:54
Intake & Output
12/06/23 12/07/23 12/08/23 12/09/23
06:59 06:59 06:59 06:59
Intake Total 1915.0 / 1915.0 1486.4 / 1486.4 11.2 / 11.2
Output Total 1260 / 1260 575 / 575
Balance 655.0 / 655.0 911.4 / 911.4 1.2 / 1.2
Physical Exam
Physical Exam
General: Well developed, well nourished in NAD.
Neck: Right IJ catheter
Heart: Distant heart sounds with rub.
Lungs: Decreased breath sounds at the bases bilaterally chest tube in place
Extremities: No clubbing, cyanosis and trace edema bilaterally.
Neuro: Grossly nonfocal, awake, alert and oriented x3.
[2023-12-08 09:07] LABS: Glucose - Point of Care 178 mg/dl (70-99)
[2023-12-08] MEDS: JARDIANCE 10 MG PO (09:15)
[2023-12-08] MEDS: GLUCOPHAGE 1000 MG PO ×2 (09:15→17:23)
--- NOTE | 2023-12-08 09:16 | PTCARENOTE ---
V wires removed by CVPA.
[2023-12-08 10:28] LABS: Glucose - Point of Care 157 mg/dl (70-99)
[2023-12-08] MEDS: LASIX 40 MG IV (10:53)
--- NOTE | 2023-12-08 11:08 | PTCARENOTE ---
RIJ Cordis and Mediastinal Chest tubes X2 removed per CV CURATOR HERBARIUM order.
[2023-12-08] MEDS: NSS IV (12:14)
--- NOTE | 2023-12-08 12:19 | CM ---
CM following for DC planning needs.
Reviewed initial assessment. Pt. resides w/ spouse in a private, 2 story home w/ 1st floor set up. Functionally, patient is indep. at baseline w/ ADLs, mobility without use of any assisted device.
Anticipated DC plan is for home w/ CT Transitional Care RN.
CM to follow.
[2023-12-08 12:25] LABS: Glucose - Point of Care 133 mg/dl (70-99)
--- NOTE | 2023-12-08 13:15 | W.PN.INTV ---
Today's Communication / Plan
Recommendations
Doing well, transitioned off insulin protocol
Stable on RA, no new events
Likely discharge tomorrow
Encouraged OOB/Ambulation
Transfer to [facility], we will sign off upon transfer
Assessment
-
Patient is a 63-year-old male with previous history of diabetes, hypertension found to have CAD on CT calcium scoring test. He then underwent left heart catheterization demonstrating proximal LAD disease, OM and RCA disease noted as well.
Underwent elective CABG x 4 12/06/2023 and postoperatively transferred to CVICU on mechanical ventilation for further management.
CAD s/p CABG x 4 12/06/23
Perioperative mechanical ventilation s/p extubation 12/06/23
Conditions present BATH STEWARD/STEWARDESS
DM
HTN
Obesity, BMI 31
Plan
S/p CAB POD #2
Stable off pressors
ECHO reviewed with normal function/stage II DD
Pain control
RASS goal of 0 to -1
Intubated for procedure, extubated and doing well
ABG(s) reviewed/adequate
CXR with stable postop changes
Currently weaned to RA
No prior history of pulmonary disease
No prior PFTs for review
Can add nebulizers if needed
Aspiration precautions
Encouraged incentive spirometry, OOB/ambulation/early mobility
Doing well with IS, can achieve >3L
Advance diet as tolerated following extubation
GI prophylaxis if indicated for mechanical ventilation >48 hours
Monitor critical I/O's
Pepe/chest tube output
Hb/platelets postoperatively stable
Trend CBC for now
Can transfuse if indicated for Hb <7, plt <50 in surgical patients
DVT prophylaxis including SCDs
Insulin protocol initiated
Transitioned to SQ/off as indicated per team
Diagnostic Data
Chest X-Ray: 12/06/23- Postop cardiothoracic surgery. No evidence for significant pneumothorax. Bilateral atelectasis.
CT Scan: PET 11/08/23- Unremarkable CT chest over read portion of the exam.
Ca CT 09/30/23- MEDIASTINUM: No pericardial effusion.
LUNGS: The imaged lungs are clear. The central airways are patent.
UPPER ABDOMEN: Unremarkable.
SKELETON: Chronic degenerative changes of the spine.
IMPRESSION: Total calcium score: 2710.62 (see below for interpretation)
Echo: ALONDRA 12/06/23- Overall LVEF is approximately 60% with no RWMA. Moderate concentric left ventricular hypertrophy. Stage II Diastolic dysfunction. Mildly dilated left atrium. Trace tricuspid regurgitation. Estimated pulmonary artery systolic
pressure of 25-30 mmHg. Trace pulmonic insufficiency. Mild aortic sclerosis without stenosis. No significant MR. Mild posterior mitral annular calcification. Mid ascending aorta is dilated measuring 3.8 cm at the level of the RPA. No significant
atheroma seen in any aortic segment.
[facility] 11/22/23- CONCLUSIONS:
1. Two-vessel coronary artery disease with chronic total occlusion of the RCA and high-grade hemodynamically significant stenosis at the ostium of the LAD. Moderate coronary disease in OM2 and OM3
2. Preserved left ventricular systolic function
PFT's:
Reports and relevant images were personally reviewed.
-----
Critical care time 31 mins -- this includes review of history, physical exam, medications, hemodynamic/ventilator parameters, laboratory data, imaging and discussion with house staff, pharmacy, respiratory therapy, environmental systems coordinator, and nursing.
Subjective Dataa
Subjective Data
Date of Service:
Date of Service: December 08, 2023
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
Subjective:
no new events ON, remains stable
on room air, using IS
ambulating well
Objective Data
Data Reviewed
Vital Signs / I&O / Oxygen:
Vital Signs
Temp Pulse Resp BP Pulse Ox
98.2 F 89 18 130/78 97
12/08/23 12:50 12/08/23 12:45 12/08/23 12:50 12/08/23 12:26 12/08/23 12:50
Intake and Output
12/07/23 12/08/23 12/09/23
06:59 06:59 06:59
Intake Total 1915.0 / 1915.0 1486.4 / 1486.4 11. / .
Output Total 1260 / 1260 575 / 575 2034
Balance 655.0 / 655.0 911.4 / 911.4 -2022.8 / -
SaO2 [CPAP/PSV] 97
SaO2 [SIMV] 99
SaO2 97
Nasal Cannula flow liters per 2
minute
Physical Exam
General: Comfortable and Other (NAD)
HEENT: Normocephalic, Anicteric and Moist Mucous Membranes
Cardiovascular: S1-S2 and Regular Rhythm
Respiratory: Clear and Non-Labored Respirations
GI: Soft, Non Distended and Non Tender
Neurology: Awake, Alert, Oriented, AO x 3 and No Motor Deficits
Skin: Warm, Dry and Good Color
Labs/Micro/Reports
Lab Data
12/08/23 03:51
12/08/23 03:51
--- NOTE | 2023-12-08 13:25 | PTCARENOTE ---
NSR on monitor and VSS; pt ambulating in hallways; assessment unchanged.
--- NOTE | 2023-12-08 16:20 | PTCARENOTE ---
NSR on monitor and VSS; assessment unchanged and pt resting comfortably in chair.
[2023-12-08] MEDS: NOVOLOG FLEXPEN-LOW RESISTANCE 1 UNITS SC (17:28)
[2023-12-08 17:32] LABS: Glucose - Point of Care 189 mg/dl (70-99)
[2023-12-08] MEDS: TOPROL XL 25 MG PO (20:57)
--- NOTE | 2023-12-08 21:30 | PTCARENOTE ---
Patient received resting in bed watching movie. Patient A+A+Ox3. No neurological deficits noted. No c/o headache, dizziness or lightheadedness. Roxicodone 5mg PO for c/o 5/10 sternal pain - Positive relief provided. Room air. SaO2 95%. Sinus
Rhythm. Rare PVC. Heart rate 80's. Blood pressure 119/63 (81). No c/o chest pain, pressure or discomfort. Normoactive bowel sounds. Voiding without difficulty. Chest tube dressing intact. Sternal incision intact - Surgical adhesive - Open to
air. Right groin puncture site. Right knee incision - Intact - Surgical adhesive - Open to air. Right lower leg puncture site open to air. Bilateral lower extremity edema. Positive palpable pulses. Patient with no c/o back or flank pain.
Assessment as documented.
[2023-12-08 23:03] LABS: Glucose - Point of Care 149 mg/dl (70-99)
--- NOTE | 2023-12-09 | PTCARENOTE ---
Patient sleeping without difficulty. No further changes from previous assessment.
[2023-12-09 04:44] VITALS: BP 130/64
[2023-12-09 04:45] VITALS: BP 130/64
[2023-12-09] MEDS: ROXICODONE 5 MG PO (05:06)
[2023-12-09] MEDS: TYLENOL 1000 MG PO (05:06)
--- NOTE | 2023-12-09 05:25 | PTCARENOTE ---
Patient A+A+Ox3. No neurological deficits noted. AM lab work collected and sent. Portable CXR completed. Roxicodone 5mg PO and scheduled Tylenol for pain management. Patient resting in bed working on computer. Assessment/Interventions as
documented.
[2023-12-09 05:29] LABS: Hematocrit 42.4 % (39.0-52.0); Hemoglobin 14.7 g/dL (13.0-18.0); Mean Corp Hgb Conc. 34.7 g/dL (33.0-37.0); Mean Corpuscular Hgb 32.5 pg (27.0-31.0); Mean Corpuscular Volume 93.6 fL (80.0-94.0); Mean Platelet Volume 11.7 fL (7.4-10.4); Platelet Count 149 10^3/uL (130-400); Red Blood Cell Count 4.53 10^6/uL (4.70-6.10); Red Cell Dist. Width 12.5 % (11.5-14.5); White Blood Cell Count 9.1 10^3/uL (4.8-10.8)
[2023-12-09 05:53] LABS: Blood Urea Nitrogen 21 mg/dl (9-20); Calcium 9.6 mg/dl (8.4-10.2); Carbon Dioxide 30 mmol/L (22-30); Chloride 99 mmol/L (98-107); Estimated Creatinine Clearance 110 ml/min; Glucose 118 mg/dl (70-99); Magnesium 2.2 mg/dl (1.6-2.3); Potassium 4.5 mmol/L (3.5-5.1); Sodium 138 mmol/L (135-145); eGFR > 60.00
[2023-12-09 06:00] VITALS: BMI 31.3
--- NOTE | 2023-12-09 06:48 | W.PN.CT ---
Today's Communication / Plan
-
-pod #3
-no issues overnight
-diuresed with 40 iv Lasix on 12/07 (UO 800/4475 in 12/24 hrs)-continue
-weaned off O2 - pOx 9% on RA
-current meds (ASA, Plavix, Toprol bid, Amio, Protonix, Lipitor, Metformin, Jardiance)
-encourage IS, OOB, ambulate
-possible d/c soon
Assessment / Plan
-
Assessment:
S/P Standard sternotomy with aortic and right atrial cannulation/Coronary artery bypass grafting x 4 (In situ HUMPHREY to LAD, Ao to RSVG to OM 2 to OM 3, Ao to RSVG to distal RCA)/R EVH/Left atrial appendage ligation, 35 mm clip, by Dr. Muniz on 12/06/23,
pod#3
-Severe 2v CAD involving the LAD and RCA
-LVEF 60% per intraop ALONDRA
-HTN
-Hyperlipidemia
-T2DM (A1C 8.4)
-Class 1 obesity (BMI 33)
-Exercise induced asthma
-COVIDx2
-Renal calculi
-Diverticulosis
-S/p colonoscopy with polypectomies, 10/2022
-S/P repair of torn right meniscus, 2018
-S/P repair of Left rotator cuff, 2017
-S/p repair of tip of left middle finger
-Acute postop atelectasis
-Acute postop hypovolemia with subsequent hypervolemia
-Acute postop EKG changes c/w acute pericarditis (+rub)
Discussed patient care with: Nursing and Care Team
Subjective
Procedure
Standard sternotomy with aortic and right atrial cannulation/Coronary artery bypass grafting x 4 (In situ HUMPHREY to LAD, Ao to RSVG to OM 2 to OM 3, Ao to RSVG to distal RCA)/R EVH/Left atrial appendage ligation, 35 mm clip, by Dr. Muniz on 12/06/23
-
Date of Service: December 09, 2023
Objective Data
-
PT 17.3 Sec (11.4-14.6) H 12/06/23 12:03
INR 1.44 12/06/23 12:03
APTT 27.7 Sec (23.4-35.0) 12/06/23 12:03
Vital Signs
Vital Signs
Temp Pulse Resp BP Pulse Ox
98.3 F 72 16 120/69 95
12/08/23 22:45 12/09/23 00:45 12/08/23 22:45 12/08/23 22:58 12/08/23 22:53
CT Intake/Output/Weight
12/08/23 12/08/23 12/09/23
06:59 18:59 06:59
Intake Total 603.5 / 1486.4 11.2 / 251.2 240 / 251.2
Output Total 415 / 575 3685 / 4485 800 / 4485
Balance 188.5 / 911.4 -3673.8 / -4233.8 -560 / -4233.8
SaO2: 95
Physical Exam
-
General: Awake and AOx3
Cardiovascular: Regular rate & rhythm, No Murmurs and Rub
Respiratory: Decreased Breath Sounds
Sternum: Stable
Incision: Clean, Dry and Intact
Abdomen: soft, nontender, + bowel sounds
Extremities: Other (trace edema b/l, 1+ DPs b/l)
Data Reviewed
-
Lab Results: Results Reviewed
Medications: Active Meds Reviewed
Chest X-Ray: Report Reviewed and Image Reviewed
ECG: Report Reviewed and Image Reviewed
[2023-12-09 07:46] VITALS: BP 121/61
[2023-12-09] MEDS: NOVOLOG FLEXPEN-LOW RESISTANCE SC (07:46)
--- NOTE | 2023-12-09 07:46 | PN.DE.MGMTRT ---
Insulin Management
- -
12/09/2023: Diabetes Management Follow up
Patient admitted 12/06/23 for CABG. PMH: HTN, HLD, nephrolithiasis, ASCVD and T2DM.
Prior to admission patient taking metformin ER 1000 mg Q PM. A1C on admission 8.4% down from 13.4% 09/30/23. Per Dr. Muniz note patient taking metformin and following carb controlled diet. Since being diagnosed 2 months ago patient has all but
eliminated carbs, eating salads and salmon, chicken and oatmeal. He states he rows 45 minutes each morning and rides his bike 15 miles EVERY day, he has lost ~ 40 pounds and down 4 pant sizes.
POD#3 s/p CABG x 4. Pt Awake, A/O x3, sitting up in chair, able to discuss diabetes management, at bedside, reviewed glucose monitor per her request.
Pt Transitioned off glycemic protocol 12/07 to Metformin 1000mg BID and Jardiance 10mg daily.
Premeal glucose stable and in range 133 to 189, HS 149, fasting 118 this AM
Will make no changes to current regimen.
CM reports cost of Farxiga or Jardiance $35.00 per month, $70 3 month supply but may be able to use free co-pay card.
He initially was reluctant to testing his blood sugar but agreed to the importance. Provided and instructed on Contour next glucose monitor with good return demonstration. Patient able to verbalize times to test and target range.
RX for metformin, Jardiance, test strips and lancets in ambulatory orders. NOT transmitted
Diabetes History
- -
Type of Diabetes: 2
Pre-Admission Diabetes Regimen
12/09/23
05:00
Creatinine 0.8
Lab Results
Hemoglobin A1c 8.4 % (4.0-5.6) H 12/02/23 12:17
Insulin Pump Settings
IP Diabetes Regimen
12/08/23 12/08/23 12/08/23
07:53 09:04 10:26
Glucose
POC Glucose 116 H 178 H 157 H
12/08/23 12/08/23 12/08/23
12:23 17:27 23:02
Glucose
POC Glucose 133 H 189 H 149 H
12/09/23
05:00
Glucose 118 H
POC Glucose
Meal type: Dinner
Meal type: Lunch
Meal type: Breakfast
Amount consumed: 75%
Amount consumed: 100%
Amount consumed: 100%
Patient Education
--- NOTE | 2023-12-09 08:06 | PTCARENOTE ---
Received pt from equipment manager RN; pt AAOx3 and ambulating in hallways; NSR on monitor and VSS; Lungs clear; IS to 3000; hypoactive bowel sounds and pt reports flatus; pt voiding clear yellow urine; palpable pulses; trace lower extremity edema;
surgical sites C/D/I; see nursing documentation for further details.
[2023-12-09] MEDS: JARDIANCE 10 MG PO (08:31)
[2023-12-09] MEDS: LOW STRENGTH ASPIRIN 81 MG PO (08:31)
[2023-12-09] MEDS: PROTONIX 40 MG PO (08:31)
[2023-12-09] MEDS: PACERONE 200 MG PO (08:32)
[2023-12-09] MEDS: GLUCOPHAGE 1000 MG PO (08:32)
[2023-12-09] MEDS: PLAVIX 75 MG PO (08:32)
[2023-12-09] MEDS: TOPROL XL 25 MG PO (08:32)
[2023-12-09] MEDS: SENOKOT-S 1 TABLET PO (08:32)
[2023-12-09] MEDS: LIPITOR 10 MG PO (08:32)
[2023-12-09] MEDS: MAGNESIUM OXIDE 500 MG PO (08:32)
[2023-12-09] MEDS: NEURONTIN 100 MG PO (08:32)
[2023-12-09] MEDS: LIDOCAINE 4% PATCH 1 PATCH TOPICAL (08:33)
[2023-12-09] MEDS: BACTROBAN 2% OINTMENT 1 APPLIC NASAL (08:33)
--- NOTE | 2023-12-09 09:16 | W.DCSUMMARY ---
Discharge Summary
Discharge Data
Date of Admission: 12/06/23
Date of Discharge: 12/09/23
-
Pending Results: No
Hospital Course
Primary care physician: Geeta Roman
Outpatient rubber ball finisher: Holly Mcintosh
Inpatient consultants: [facility], diabetic nurse practitioner
Procedures:
1. Coronary artery bypass grafting and left atrial appendage ligation
Primary Diagnosis:
1. Triple-vessel coronary disease
Secondary Diagnoses:
1. Hypertension
2. Hyperlipidemia
3. Type 2 diabetes (A1c 8.4)
4. Carotid atherosclerosis
5. History of nephrolithiasis
6. Exercise-induced asthma
7. Postoperative acute pericarditis
HPI: 63-year-old male was electively admitted on 12/06/2023 for CABG due to triple-vessel coronary disease with preserved ejection fraction.
Hospital course: Patient underwent CABG x 4 (HUMPHREY to LAD, RSVG to OM 2 & OM 3 in sequence, RSVG to distal RCA), and left atrial appendage ligation #[address] Zhou Muniz. post procedure ALONDRA: EF�60%. Patient returned to CVICU on Levophed
and Precedex. Patient was extubated at 1508 on the day of surgery. On postoperative day #1, the A-line and select [place] were discontinued morning EKG consistent with pericarditis and Toradol 50 mg IV x 3 was administered. The left chest tube was
also removed. Postoperative day #2 the temporary epicardial ventricular wires and remaining mediastinal chest tubes were removed. Today right IJ cordis was removed. Patient transitioned off the insulin drip and was seen by the diabetic EXHAUST WORKER for
adjustment of metformin and initiation of Jardiance. On postoperative day #3, patient remained stable without postoperative atrial fibrillation. Amiodarone was discontinued on discharge. Patient ambulated with cardiac rehab and deemed stable for
discharge to home.
Home medication changes:
Metformin increased to 1000 mg twice daily
Toprol XL 25 mg increased to twice daily
Hold Repatha x 1 week, then resume
Discharge Plan
-
Patient Disposition: Home (Routine Discharge)
Discharge Diagnosis/Procedures: CAD/CABG
Condition: Good
Diet: Low Cholesterol, Low Sodium and Diabetic, Carb Controlled
Activity: No strenuous activity
Driving Restrictions: Not until seen by your Dr
Bathing Restrictions: OK to Shower
Other Services: Cardiac Rehab
Specialty Instructions: Weigh Daily- Call MD for wt gain/loss 3 lbs overnight/5 lbs in 1 week
Referrals:
CT Transitional Care Nurse [Outside]
[facility] [Outside] - 01/17/24 1:00 pm
(Cardiac Rehab Orientation appointment is on at 1pm.
The Cardiac Rehab gym is located on the first floor of the [facility].)
Linda James CRNP [Specified Professional Personl] - 02/02/24 8:00 am ( your appt on December 25 @ 8am with Linda James was CANCELLED )
Geeta Roman DO [Family Provider] -
Zhou Muniz MD [Active] - 01/11/24 2:00 pm
Additional Discharge Medication Instructions: hold Repatha x 1 week
Prescriptions:
New
metformin 1,000 mg Tablet
1,000 mg PO BID@0800,1700 Qty: 60 0RF
Jardiance 10 mg Tablet
10 mg PO DAILY Qty: 30 0RF
(DME) Contour Next Test Strips Strip
Qty: 100 0RF
Rx Instructions:
Test 2 times per day in pattern provided As Directed
E11.65
(DME) lancets [Color Lancets] 21 gauge Misc
Qty: 100 0RF
Rx Instructions:
Test BID in pattern provided As Directed
E11.65
acetaminophen 325 mg Tablet
650 mg PO Q4HPRN PRN (Reason: mild pain,headache,temp >101F ) Qty: 0 0RF
cyclobenzaprine 10 mg Tablet
5 mg PO Q8HPRN PRN (Reason: muscle spasm) Qty: 20 0RF
clopidogrel 75 mg Tablet
75 mg PO DAILY Qty: 30 1RF
gabapentin 100 mg Capsule
100 mg PO TID Qty: 30 0RF
metoprolol succinate 25 mg Tablet Extended Release 24 Hr
25 mg PO BID Qty: 60 1RF
oxycodone 5 mg Tablet
5 mg PO Q6HPRN PRN (Reason: severe pain) Qty: 20 0RF
pantoprazole 40 mg Tablet,Delayed Release (Dr/Ec)
40 mg PO DAILY Qty: 30 1RF
Continued
multivitamin [Daily Multiple] 1 EACH tablet
1 ea PO DAILY
aspirin 81 mg Tablet
81 mg PO DAILY
pitavastatin calcium [Livalo] 1 mg Tablet
1 mg PO DAILY
Repatha SureClick 140 mg/mL Pen Injector
140 mg SC Q2W
Discontinued
metformin 500 mg Tablet
1,000 mg PO QPM
metoprolol succinate 25 mg tablet extended release 24 hr
25 mg PO DAILY
Discharge Orders:
Discharge Patient (As Directed); Ordered 12/09/23
Ordered By: Kristin Chua
Care Plan Goals
Care Plan Goals:
Problem: Readiness for enhanced knowledge related to diagnosis and treatment plan
Goal: Understand your diagnosis and treatment plan needs, including medications if applicable.
Instructions: Know your diagnosis, underlying causes and treatment plan options, including medications if applicable. Consult with your health care team to learn about your diagnosis and treatment plan, including medications if applicable.
Discharge Date and Time
Print Language: THAI
[2023-12-09 09:43] VITALS: BP 119/80
[2023-12-09 09:50] VITALS: BP 151/90
[2023-12-09 09:56] VITALS: BP 119/80; BP 151/90; PULSE 73; O2SAT 97; O2SAT 98
--- NOTE | 2023-12-09 10:32 | PTCARENOTE ---
activities attendant removed; pt showered self; and at bedside.
[2023-12-09] MEDS: TYLENOL 650 MG PO (11:25)
--- NOTE | 2023-12-09 11:29 | CM ---
CM following for DC planning needs.
Pt. for DC today, order noted.
Plan is for DC to home w/ CT Transitional Care RN.
No add'l needs noted.
--- NOTE | 2023-12-09 11:50 | PTCARENOTE ---
Discharge instruction reviewed with pt and all questions answered; transported for discharge by wheel chair.
== END 2023-12-09 12:04 | disposition home or self-care (01) | DRG 236 ==
LOC: CVICU 04:54
PROVIDERS: Anesthesiology; Nurse Practitioner; ADMITTING PHYSICIAN Thoracic Surgery (Cardiothoracic Vascular Surgery); CONSULT PHYSICIAN Internal Medicine; FAMILY PHYSICIAN Family Medicine
PROC: 5A1221Z Performance of Cardiac Output, Continuous (ICD-10-PCS; 2023-12-06)
PROC: 02L70CK Occlusion of Left Atrial Appendage with Extraluminal Device, Open Approach (ICD-10-PCS; 2023-12-06)
PROC: 06BP4ZZ Excision of Right Saphenous Vein, Percutaneous Endoscopic Approach (ICD-10-PCS; 2023-12-06)
PROC: 021209W Bypass Coronary Artery, Three Arteries from Aorta with Autologous Venous Tissue, Open Approach (ICD-10-PCS; 2023-12-06)
PROC: B24BZZ4 Ultrasonography of Heart with Aorta, Transesophageal (ICD-10-PCS; 2023-12-06)
PROC: 02100Z9 Bypass Coronary Artery, One Artery from Left Internal Mammary, Open Approach (ICD-10-PCS; 2023-12-06)
DX: I25.10 Atherosclerotic heart disease of native coronary artery without angina pectoris (principal); I30.9 Acute pericarditis, unspecified; J98.11 Atelectasis; E11.9 Type 2 diabetes mellitus without complications; I10 Essential (primary) hypertension; E78.5 Hyperlipidemia, unspecified; E66.9 Obesity, unspecified; J45.990 Exercise induced bronchospasm; I65.29 Occlusion and stenosis of unspecified carotid artery; E86.1 Hypovolemia; E87.70 Fluid overload, unspecified; Z68.31 Body mass index [BMI] 31.0-31.9, adult; Z79.82 Long term (current) use of aspirin; Z79.84 Long term (current) use of oral hypoglycemic drugs; Z79.899 Other long term (current) drug therapy; Z82.49 Family history of ischemic heart disease and other diseases of the circulatory system; Z86.16 Personal history of COVID-19
CPT/HCPCS: 36415; 71045; 80048; 80053; 81003; 82248; 82330; 82565; 82805; 82947; 82962; 83036; 83735; 84132; 84302; 84520; 85014; 85018; 85025; 85027; 85049; 85610; 85730; 86850; 86900; 86901; 86920; 87070; 93005; 93312; 93320; 93325; 93880; 94002; C1713; J2916; P9045

== ENCOUNTER → 2024-06-04 11:32 | Outpatient (REF) | payer BC, SELFPAY ==
[2024-06-04 12:16] LABS: % Basophils 0.4 % (0-2); % Eosinophils 1.5 % (0-6); % Immature Granulocytes 0.1 % (0-0.5); % Lymphocytes 25.5 % (20.5-51.1); % Monocytes 9.8 % (1.7-9.3); % Neutrophils 62.7 % (42.2-75.2); Absolute Eosinophils 0.1 10^3/uL (0-0.7); Absolute Lymphocytes 1.9 10^3/uL (1.2-3.4); Absolute Monocytes 0.7 10^3/uL (0.1-0.6); Absolute Neutrophils 4.7 10^3/uL (1.4-6.5); Hematocrit 49.1 % (39.0-52.0); Mean Corp Hgb Conc. 34.6 g/dL (33.0-37.0); Mean Corpuscular Hgb 31.4 pg (27.0-31.0); Mean Corpuscular Volume 90.8 fL (80.0-94.0); Mean Platelet Volume 11.4 fL (7.4-10.4); Nucleated Red Blood Cells % 0 % (-); Platelet Count 191 10^3/uL (130-400); Red Blood Cell Count 5.41 10^6/uL (4.70-6.10); Red Cell Dist. Width 12.5 % (11.5-14.5); White Blood Cell Count 7.5 10^3/uL (4.8-10.8)
[2024-06-04 12:58] LABS: Microalbumin/creatinine Ratio 8.9 mg/g
[2024-06-04 13:33] LABS: ALT (SGPT) 28 U/L (0-50); AST (SGOT) 34 U/L (17-59); Albumin 4.7 g/dl (3.5-5.0); Alkaline Phosphatase 69 U/L (38-126); Blood Urea Nitrogen 18 mg/dl (9-20); Calcium 9.9 mg/dl (8.4-10.2); Carbon Dioxide 31 mmol/L (22-30); Chloride 98 mmol/L (98-107); Glucose 132 mg/dl (70-99); HDL Cholesterol 50 mg/dl; LDL Cholesterol, Calculated 18 mg/dl; Potassium 5.3 mmol/L (3.5-5.1); Sodium 139 mmol/L (135-145); Total Bilirubin 1.2 mg/dl (0.2-1.3); Total Cholesterol 79 mg/dl (50-199); Total Protein 7.1 g/dl (6.3-8.2); Triglyceride 58 mg/dl (10-149); Very Low Density Lipoprotein 11 mg/dl (0-30); eGFR > 60.00
[2024-06-04 14:41] LABS: Glycohemoglobin (HgbA1c) 7.5 % (4.0-5.6)
== END ==
LOC: REG 11:32
PROVIDERS: ATTENDING PHYSICIAN Family Medicine
DX: Z95.1 Presence of aortocoronary bypass graft (principal); E11.65 Type 2 diabetes mellitus with hyperglycemia; E78.49 Other hyperlipidemia
CPT/HCPCS: 36415; 80053; 80061; 82043; 82570; 83036; 85025

== ENCOUNTER → 2025-03-15 12:07 | Outpatient (REF) | payer BC, SELFPAY ==
[2025-03-15 12:56] LABS: Hematocrit 52.9 % (39.0-52.0); Hemoglobin 18.0 g/dL (13.0-18.0); Mean Corp Hgb Conc. 34.0 g/dL (33.0-37.0); Mean Corpuscular Volume 93.5 fL (80.0-94.0); Nucleated Red Blood Cells % 0 % (-); Platelet Count 207 10^3/uL (130-400); Red Cell Dist. Width 11.9 % (11.5-14.5)
[2025-03-15 13:51] LABS: ALT (SGPT) 28 U/L (0-50); AST (SGOT) 26 U/L (17-59); Albumin 4.7 g/dl (3.5-5.0); Alkaline Phosphatase 70 U/L (38-126); Blood Urea Nitrogen 21 mg/dl (9-20); Calcium 10.1 mg/dl (8.4-10.2); Carbon Dioxide 28 mmol/L (22-30); Chloride 100 mmol/L (98-107); Glucose 163 mg/dl (70-99); HDL Cholesterol 52 mg/dl; LDL Cholesterol, Calculated 13 mg/dl; Potassium 4.6 mmol/L (3.5-5.1); Sodium 136 mmol/L (135-145); Total Protein 7.2 g/dl (6.3-8.2); Very Low Density Lipoprotein 18 mg/dl (0-30); eGFR > 60.00
[2025-03-15 14:10] LABS: Glycohemoglobin (HgbA1c) 8.0 % (4.0-5.6)
== END ==
LOC: REG 12:07
PROVIDERS: ATTENDING PHYSICIAN Family Medicine; REFERRING PHYSICIAN Internal Medicine Cardiovascular Disease
DX: E78.49 Other hyperlipidemia (principal); E11.59 Type 2 diabetes mellitus with other circulatory complications; Z00.00 Encounter for general adult medical examination without abnormal findings; E78.5 Hyperlipidemia, unspecified
CPT/HCPCS: 36415; 80053; 80061; 83036; 83695; 85025

== ENCOUNTER → 2025-03-21 08:13 | Outpatient (REF) | payer BC, SELFPAY ==
[2025-03-21 09:07] LABS: Hematocrit 49.1 % (39.0-52.0); Hemoglobin 16.8 g/dL (13.0-18.0); Mean Corp Hgb Conc. 34.2 g/dL (33.0-37.0); Mean Corpuscular Volume 92.5 fL (80.0-94.0); Nucleated Red Blood Cells % 0 % (-); Platelet Count 219 10^3/uL (130-400); Red Cell Dist. Width 11.9 % (11.5-14.5)
[2025-03-21 09:39] LABS: ALT (SGPT) 30 U/L (0-50); AST (SGOT) 29 U/L (17-59); Albumin 4.4 g/dl (3.5-5.0); Alkaline Phosphatase 69 U/L (38-126); Blood Urea Nitrogen 25 mg/dl (9-20); Calcium 10.1 mg/dl (8.4-10.2); Carbon Dioxide 28 mmol/L (22-30); Chloride 99 mmol/L (98-107); Glucose 165 mg/dl (70-99); HDL Cholesterol 47 mg/dl; LDL Cholesterol, Calculated 25 mg/dl; Sodium 133 mmol/L (135-145); Total Protein 7.0 g/dl (6.3-8.2); Very Low Density Lipoprotein 19 mg/dl (0-30); eGFR > 60.00
[2025-03-21 10:22] LABS: Potassium 4.4 mmol/L (3.5-5.1)
[2025-03-21 10:33] LABS: PSA, Total - Screen 1.35 ng/ml (0.0-4.0)
== END ==
LOC: RAD 08:13
PROVIDERS: ATTENDING PHYSICIAN Family Medicine
DX: Z87.442 Personal history of urinary calculi (principal); E11.59 Type 2 diabetes mellitus with other circulatory complications; I25.10 Atherosclerotic heart disease of native coronary artery without angina pectoris; I10 Essential (primary) hypertension; E78.5 Hyperlipidemia, unspecified; Z12.5 Encounter for screening for malignant neoplasm of prostate
CPT/HCPCS: 36415; 74018; 80053; 80061; 85025; G0103

== ENCOUNTER → 2025-04-18 06:59 | Outpatient (REF) | payer BC, SELFPAY | LOC: HWRCS 06:59 | PROVIDERS: ATTENDING PHYSICIAN Physician Assistant Medical; FAMILY PHYSICIAN Family Medicine | DX: I25.10 Atherosclerotic heart disease of native coronary artery without angina pectoris (principal); I10 Essential (primary) hypertension; Z95.1 Presence of aortocoronary bypass graft; E78.5 Hyperlipidemia, unspecified; E11.59 Type 2 diabetes mellitus with other circulatory complications | CPT/HCPCS: 78452; 93017; A9500 ==